=== PATIENT | female | born 1965 | race Caucasian/White ===

== ENCOUNTER 2024-03-12 13:33 | Outpatient (AMB) | payer OTHER, MEDICARE, SELFPAY ==
[2024-03-12 14:22] VITALS: BP 120/68; PULSE 72; O2SAT 96; BMI 26.2
--- NOTE | 2024-03-12 14:22 | A.OFFVIS_ITS ---
Vital Signs 03/12/24 14:22 Height 5 ft 1 in Weight 138 lb 14.259 oz BMI 26.2 BP 120/68 Blood Pressure Location Lt brachial Position Sitting Pulse 72 Pulse Source Pulse Oximeter Pulse Oximetry (%) 96 Oxygen Delivery Method Room Air Intake Visit Reasons: RA//RECORDS RECEIVED Intake Note: Patient presents today for follow up on rheumatoid arthritis and arthralgia on hands and feet. She was last seen on 11/08/[address] Mendoza. Allergies baclofen Allergy (Mild, Verified 03/12/24 14:30) Hives cefpodoxime Allergy (Mild, Verified 03/12/24 14:30) Hives cipro IV Allergy (Mild, Uncoded 03/12/24 14:30) Hives Medication List - Last Reconciled 03/12/24 by Willy Mendoza MD [cannabis gummies] carvedilol 12.5 mg PO BID cetirizine (All Day Allergy (cetirizine)) 10 mg PO DAILY PRN cholecalciferol (vitamin D3) 500 mcg PO QWEEK diazepam 10 mg PO BEDTIME PRN etanercept (Enbrel SureClick) 50 mg subcut QWEEK famotidine 20 mg PO DAILY ketorolac 0.4% 1 drp ophthalmic (eye) QID lidocaine 5% 1 patch topical DAILY rizatriptan 10 mg PO Q2-4H PRN tramadol 50 mg PO BID PRN HPI HPI RA//RECORDS RECEIVED: Details: She had flare of joint pain in shoulders, back. She recieved methylprednisone from Dr. Husain (methylprednisolone 16mg x3 tapered down). She had a reaction with hypertension, insomnia, POTs exacerbation with diaphoresis. No change in pain with methylprednisolone course. She continues to have hip and knee pain. She fell January. Improving. Patient has remained off of methotrexate since uterine biopsy due to thickening of the uterus in setting of postmenopausal bleeding in September 2023. She had a repeat uterine biopsy with results pending. Patient reports that methotrexate was held due to transaminitis. Review of Systems Const All systems reviewed & are unremarkable except as noted in HPI and below Physical Exam Vital Signs: Last Vital Signs Pulse 72 03/12/24 14:22 BP 120/68 03/12/24 14:22 Pulse Ox 96 03/12/24 14:22 Oxygen Delivery Method Room Air 03/12/24 14:22 BMI result Body Mass Index 26.2 Const Other: General: Comfortable CVS: RRR Respiratory: clear to auscultation bilaterally. Good respiratory effort Skin: No lesions seen MSK: Tender to palpate multiple small joints in hands. No synovitis. Good range of motion of upper extremities and lower extremities. Tender to palpate bilateral MTPs. Assessment & Plan Assessment & Plan (1) Rheumatoid arthritis: Comment: History of seronegative RA. Methotrexate 09/2021-10/2023 held due to uterine biopsy. Enbrel 01/11/2023 to present. Prednisone and methylprednisolone exacerbates POTS. 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 Patient reports that she has had transaminitis on methotrexate but I could not find documentation from reviewing [facility]. Last set of labs from 11/08/2023 revealed normal AST and ALT. Code(s): M06.9 - Rheumatoid arthritis, unspecified Category: Medical Plan: Continue Enbrel weekly Labs for drug monitoring from last month is requested. I will also request nursing staff to find out if patient had transaminitis this year by calling [facility] treatment center. If patient has not had transaminitis, can reintroduce methotrexate to better control foot pain. Labs for drug monitoring ordered in 2 months Return to clinic 3 months (2) Other terminal block assembler (current) drug therapy: Code(s): Z79.899 - Other terminal block assembler (current) drug therapy Category: Medical Plan: See above Orders: Orders Alanine Aminotransferase 2 Months M06.9 - Rheumatoid arthritis, unspecified, Z79.899 - Other detention (current) drug therapy Aspartate Amino Transferase 2 Months M06.9 - Rheumatoid arthritis, unspecified, Z79.899 - Other detention (current) drug therapy Creatinine 2 Months M06.9 - Rheumatoid arthritis, unspecified, Z79.899 - Other terminal block assembler (current) drug therapy Hepatitis B,C Profile 2 Months M06.9 - Rheumatoid arthritis, unspecified, Z79.899 - Other detention (current) drug therapy T Spot TB 2 Months M06.9 - Rheumatoid arthritis, unspecified, Z79.899 - Other terminal block assembler (current) drug therapy Complete Blood Count Auto Diff 2 Months M06.9 - Rheumatoid arthritis, u nspecified, Z79.899 - Other detention (current) drug therapy Erythrocyte Sedimentation Rate 2 Months M06.9 - Rheumatoid arthritis, unspecified, Z79.899 - Other detention (current) drug therapy C Reactive Protein 2 Months M06.9 - Rheumatoid arthritis, unspecified, Z79.899 - Other detention (current) drug therapy Coding Level of Care Code Est Pt Level 4 (38453) Complex EM visit Add On G2211 Diagnoses Rheumatoid arthritis M06.9 Other detention (current) drug therapy Z79.899
== END 2024-03-12 15:09 | disposition home or self-care (01) ==
PROVIDERS: Visit Provider Internal Medicine Rheumatology
DX: M06.9 Rheumatoid arthritis, unspecified (principal); Z79.899 Other long term (current) drug therapy
CPT/HCPCS: 99214

== ENCOUNTER 2024-04-23 15:07 | Outpatient (REF) | payer OTHER, MEDICARE, SELFPAY | END 2024-04-23 15:08 | disposition home or self-care (01) | LOC: HO.LAB 15:07 | PROVIDERS: Visit Provider Internal Medicine Rheumatology | DX: Z13.89 Encounter for screening for other disorder (principal) ==

== ENCOUNTER 2024-05-20 15:59 | Outpatient (REF) | payer OTHER, MEDICARE, SELFPAY ==
[2024-05-20 16:29] LABS: MANUAL DIFF FLAG NO
[2024-05-20 17:08] LABS: Basophils Absolute Auto 0.1 X10*3/uL (0.0-0.2); Eosinophils Absolute Auto 0.2 X10*3/uL (0.0-0.4); Eosinophils Percent Auto 2.8 % (0-4); Hematocrit 41.6 % (37.0-47.0); Hemoglobin 13.9 g/dl (12.0-16.0); Imm Gran Abs Auto 0.03 X10*3/uL (0.00-0.03); Imm Gran Pct Auto 0.4 % (0.0-0.4); Lymphocytes Absolute Auto 3.1 X10*3/uL (1.2-4.9); Mean Corpuscular HGB Conc 33.4 g/dl (31.0-35.0); Mean Corpuscular Hemoglobin 30.8 pg (27.0-33.0); Mean Platelet Volume 9.7 fL (9.4-12.3); Monocytes Absolute Auto 0.6 X10*3/uL (0.1-1.2); Monocytes Percent Auto 6.6 % (2-11); Neutrophils Absolute Auto 4.4 x10*3/uL (2.0-8.3); Neutrophils Percent Auto 52.2 % (45-73); Platelet Count 338 X10*3/uL (160-400); Red Blood Count 4.52 X10*6/uL (4.20-5.50); Red Cell Distribution Width 12.3 % (11.0-16.0); White Blood Count 8.3 X10*3/uL (4.8-10.8)
[2024-05-20 17:30] LABS: Alanine Aminotransferase 19 U/L (0-31); Aspartate Amino Transferase 31 U/L (5-31); C Reactive Protein 0.49 mg/dL (< or = 0.50); Estimated Glomerular Filt Rate > 60
[2024-05-20 18:00] LABS: Erythrocyte Sedimentation Rate 12 MM/HR (0-20)
--- OUTSIDE RECORDS SUMMARY | 2024-05-20 19:41 | XMS_ITS | Clinical Summary ---
Author Organization [facility] Address [address] [place] [address] Care Team Providers Care Logistician Name Role Phone Unavailable Primary Care Provider Unavailabl e Social History Tobacco Use Types Packs/Day Years Used Date Smoking Tobacco: Never Assessed Sex and Gender Information Value Date Recorded Sex Assigned at Not on file Gender Identity Not on file Sexual Orientation Not on file Plan of Treatment Health Maintenance Due Date Last Done Comments Hepatitis C Virus Screening 1966 HIV Screening 1979 DTaP/Tdap/Td Vaccines (1 - Tdap) 1985 Hepatitis B Vaccines (1 of 3 - 19+ 3-dose series) 1985 Pneumococcal Vaccines 50+ (1 of 1 - PCV) 2016 Zoster (Shingles) Vaccine (1 of 2) 2016 COVID-19 Vaccine ( - 2023-2 5 season) 2023 Pneumococcal Vaccine: Pediat kanwal (0-5 Years) and At-Risk Patients (6 to 49 Years) Aged Out No longer eligible b ased on patient's age to complete this topic
--- OUTSIDE RECORDS SUMMARY | 2024-05-20 19:41 | XMS_ITS | Encounter Summary ---
Author Organization [facility] and [facility] Address [address] [place] [phone] Care Team Providers Care Dean Name Role Phone Nery Herman MD Primary Care Provider [phone] Encounter Details Date Type Department Care Team (Late st Contact Info) Description 04/30/2021 Scanned Document [facility] [address] [facility] [address] [facility] [place], [place] [id number] Provider, historical . Social History Tobacco Use Types Packs/Day Years Used Date Smoking Tobacco: Never Smokeless Tobacco: Never Alcohol Use Standard Drinks/Week Comments Not Currently 0 (1 standard drink = 0.6 oz pur e alcohol) Comments Unknown Sex and Gender Information Value Date Recorded Sex Assigned at Female 02/27/2021 11:08 AM EDT Legal Sex Female 8:16 AM EDT Gender Identity Female 01/28/2019 8:18 AM EDT Sexual Orientation Not on file documented as of this encounter Plan of Treatment Not on file documented as of this encounter Procedures Procedure Name Priority Date/Time Associated Diagnosis Comments [facility] MRI BRAIN Routine 04/25/2021 documented in this encounter Results * [facility] MRI Brain (04/25/2021) Anatomical Region Laterality Modality Head, Ortho Head Magnetic Resona nce us Historical Provider IMG [facility] NON REP ORDERABLES F inal Result documented in this encounter Visit Diagnoses Not on filedocumented in this encounter Care Teams Dean Relationship Specialty Start Date End Date Nery Herman MD [address] [place] [phone] PCP - General Internal Medicine 12/10/18 documented as of this encounter
--- OUTSIDE RECORDS SUMMARY | 2024-05-20 19:42 | XMS_ITS | Clinical Summary ---
Author Organization [facility] Address [address] [place] [address] Care Team Providers Care Shoe Shiner Name Role Phone Unavailable Primary Care Provider Unavailabl e Allergies Active Allergy Reactions Criticality Noted Date Comments Oxycodone-Acetaminophen Itching 10/01/2015 Medications Medication Sig Dispensed Refills Start Date End Date Status morphine (MSIR) 30 MG tablet 0 09/10/2015 Active ESTRACE VAGINAL 0.1 MG/GM vaginal cream 0 09/08/2015 Active diazepam (VALIUM) tablet 5 mg 0 09/04/2015 Active ondansetron (ZOFRAN-ODT) 4 MG disintegrating tablet 0 08/30/2015 Active zonisamide (ZONEGRAN) 100 MG capsule 0 06/30/2015 Active zonisamide (ZONEGRAN) 50 MG capsule 0 06/29/2015 Active topiramate (TOPAMAX) 100 MG tablet Take 100 mg by mouth daily. 0 Active Cholecalciferol (VITAMIN D3) 2000 UNITS CHEW Chew by mouth. 0 A ctive Active Problems No known active problems Family History Relation Name Status Comments Father Mother Social History Tobacco Use Types Packs/Day Years Used Date Smoking Tobacco: Never Alcohol Use Standard Drinks/Week Comments Yes 0 (1 standard drink = 0.6 oz pur e alcohol) occasionally Sex and Gender Information Value Date Recorded Sex Assigned at Not on file Gender Identity Not on file Sexual Orientation Not on file Last Filed Vital Signs Vital Sign Reading Time Taken Comments Blood Pressure 124/82 10/01/2015 11:00 AM EDT Pulse 86 10/01/2015 11:00 AM EDT Temperature 37.1 ??C (98.7 ??F) 10/01/2015 11:00 AM E DT Respiratory Rate - - Oxygen Saturation 100% 10/01/2015 11:00 AM EDT Inhaled Oxygen Concentration - - Weight 72.6 kg (160 lb) 10/01/2015 11:00 AM EDT Height 152.4 cm (5') 10/01/2015 11:00 AM EDT Body Mass Index 31.25 10/01/2015 11:00 AM EDT Plan of Treatment Health Maintenance Due Date Last Done Comments Hepatitis B Vaccines (1 of 3 - 3-dose series) 1966 Hepatitis C Screening 1966 COVID-19 Vaccine (#1) 1966 Depression Screening 1978 Preventative Health Evaluation 1984 DTap / Tdap / Td (1 - Tdap) 1985 Cervical Cancer Screening (P ap Smear) 1987 Colon Cancer Screening (Colonoscopy) 2011 Breast Cancer Screening (Mammogram) 2016 Shingrix-Zoster Vaccine (1 of 2) 2016 Influenza Vaccine (#1) 2023 Pneumococcal Vaccine Aged Out No long er eligible based on patient's age to complete this topic RSV Ped < 20 months Aged Out No longe r eligible based on patient's age to complete this topic
--- OUTSIDE RECORDS SUMMARY | 2024-05-20 19:42 | XMS_ITS | Encounter Summary ---
Author Organization [facility] [employer] and [facility] Address [address] [place] [address] Care Team Providers Care Residential Energy Auditor Name Role Phone Nery Herman MD Primary Care Provider [phone] Encounter Details Date Type Department Care Team ([facility] st Contact Info) Description 11/16/2018 Abstract [facility] [address] [facility] [address] [facility] [place] [address] José Luis Azar MD [address] [place] [phone] Social History Tobacco Use Types Packs/Day Years Used Date Smoking Tobacco: Never Assessed Comments Unknown Sex and Gender Information Value Date Recorded Sex Assigned at Female 02/27/2021 11:08 AM EDT Legal Sex Female 8:16 AM EDT Gender Identity Female 01/28/2019 8:18 AM EDT Sexual Orientation Not on file documented as of this encounter Plan of Treatment Not on file documented as of this encounter Visit Diagnoses Not on filedocumented in this encounter Care Teams Residential Energy Auditor Relationship Specialty Start Date End Date Nery Herman MD [address] [place] [phone] PCP - General Internal Medicine 12/10/18 documented as of this encounter
--- OUTSIDE RECORDS SUMMARY | 2024-05-20 19:42 | XMS_ITS | Encounter Summary ---
Author Organization [facility] [employer] [facility] and [facility] Address [address] [place] [phone] Care Team Providers Care Wire Wrapping Machine Operator Name Role Phone Nery Herman MD Primary Care Provider [phone] Encounter Details Date Type Department Care Team ([facility] st Contact Info) Description 02/18/2019 Scanned Document [facility] at [address] [facility] [address] [facility] [place] [address] José Luis Azar MD [address] [place] [phone] Social History Tobacco Use Types Packs/Day Years [...] on filedocumented in this encounter Care Teams Wire Wrapping Machine Operator Relationship Specialty Start Date End Date Nery Herman MD [address] [place] [phone] PCP - General Internal Medicine 12/10/18 documented as of this encounter
--- OUTSIDE RECORDS SUMMARY | 2024-05-20 19:42 | XMS_ITS | Clinical Summary ---
Author Organization [address] Address [address] [place] [phone] Phone Care Team Providers Care Dive Master Name Role Phone Nery Herman MD Primary Care Provider [phone] Allergies Active Allergy Reactions Criticality Noted Date Comments Ciprofloxacin Swelling Medium 12/10/2018 Oxycodone-Acetaminophen Itching Low 08/31/2011 Medications rizatriptan (MAXALT) 10 MG tablet TAKE 1 TABLET AT ONSET OF HEADACHE. MAY REPEAT EVERY 2 HOURS NEEDED. MAXIMUM 3 TABLETS IN 24 HRS. 3 07/06/2018 Active cholecalciferol , vitamin D3, 2,000 unit Chew Take 1 tablet by mouth daily. Active diazePAM (VALIUM) 5 MG tablet Take 15 mg by mouth nightly as needed. 11/06/2018 Active morphine (MSIR) 15 mg tablet TAKE 1 TO 2 TABLETS BY MOUTH EVERY 4 HOURS NEEDED FOR SEVERE PAIN. MAX OF 3 TABLETS A DAY. NOT INTENDED FOR ROUTINE/DAILY USE 02/15/2021 Active lidocaine (LIDODERM) 5 % PLACE 1 PATCH ONTO THE SKIN ONCE DAILY. REMOVE AFTER 12 HOURS 01/18/2021 Active carvediloL (COREG) 25 mg Immediate Release tablet TAKE ONE TABLET BY MOUTH TWICE A DAY WITH A MEAL 02/13/2021 Active ergocalciferol (ERGOCALCIFEROL ) 1,250 mcg (50,000 unit) capsule Vitamin D2 1,250 mcg (50,000 unit) capsule Active pregabalin (LYRICA) 25 mg capsule One po qD, increase by one per week until taking three po BID 180 capsule 5 03/01/2021 Active Active Problems Problem Noted Date Diagnosed Date Fibromyalgia 12/10/2018 Social History Tobacco Use Types Packs/Day Years [...] AM EDT Sexual Orientation Not on file Last Filed Vital Signs Vital Sign Reading Time Taken Comments Blood Pressure 123/73 03/01/2021 3:15 PM EST Pulse 73 03/01/2021 3:15 PM EST Temperature 36.7 ??C (98 ??F) 03/01/2021 3:15 PM EST Respiratory Rate - - Oxygen Saturation - - Inhaled Oxygen Concentration - - Weight 71.7 kg (158 lb) 03/01/2021 3:15 PM EST Height 152.4 cm (5') 03/01/2021 3:15 PM EST Body Mass Index 30.86 03/01/2021 3:15 PM EST Plan of Treatment Health Maintenance Due Date Last Done Comments HIV screening 1979 Hepatitis C screening 1984 Tetanus adult (Td q 10,TDAP once) 1986 Cervical cancer screening 1987 Breast cancer screening 2006 Lipid disorder screening 2006 Colon cancer screening, Colonoscopy 2011 Shingles vaccine (Shingrix) (1 of 2 - Shingrix (RZV) 2 Dose Standard Series) 2016 Diabetes screening 12/10/2021 12/10/2018 Influenza vaccine 11/23/2023 02/18/2022, , 02/13/2019, Additional history exists Covid-19 vaccine series (2023- season) 2023 09/16/2020, 08/19/2020 RSV Discussion (1 - 1-dose 75+ series) 2041 Meningococcal Vaccine Aged Out No jose luis antoni eligible based on patient's age to complete this topic Pneumococcal Vaccine Aged Out No long er eligible based on patient's age to complete this topic Procedures Procedure Name Priority Date/Time Associated Diagnosis Comments HEMOGLOBIN A1C Routine 12/10/2018 3:25 PM EDT Erythromelalgia (HC Code) from Last 3 Months or Most Recently Relevant to Health Maintenance Results * (ABNORMAL) Hemoglobin A1c (12/10/2018 3:25 PM EDT) Hemoglobin A1c 5.8(H) 4.0 - 5.6 % 12/10/2018 10:14 PM EDT [facility] Comment: Hemoglobin A1c values of 5.7-6.4 % identify individuals with an increased risk for future diabetes and to whom the term pre-diabetes may be applied. ??Hemoglobin A1c values greater than 6.4% on more than one occasion are diagnostic of diabetes. Lowering HbA1c to below 7% is considered to reduce microvascular and neuropathic complications of diabetes. This boronate affinity Hb A1c method provides accurate analytical results in the presence of nearly all Hb variants. Hb F higher than 10% of total Hb may yield falsely low results. Conditions that shorten red cell survival, such as the presence of unstable hemoglobins like Hb SS, Hb CC, and Hb SC, or other causes of hemolytic anemia may yield falsely low results. Iron deficiency anemia may yield falsely high results. Estimated Average Glucose mg/dL 120 mg/dL 12/10/2018 10:14 PM EDT [facility] Comment: Estimated average glucose (eAG) is a calculated value designed to estimate ??the expected average blood glucose level throughout the day from a single ??measurement of ??glycated hemoglobin A1C (HbA1c) and follows the calculation proposed by the [place] [employer] (Diabetes Care 31: 1-6, 2008). It may have less accuracy in children, women and patients with certain erythrocyte disorders. Blood Venipuncture / Unknown 12/10/2018 3:25 PM EDT 12/10/2018 3:51 PM EDT us José Luis Azar MD LAB BLOOD ORDERABLES Final R esult [facility] [address] [place], [place] [address] [phone] from Last 3 Months or Most Recently Relevant to Health Maintenance [place] [address] [place] [address] [place] [address] [address] HEALTHCARE MEDICARE [facility] MEDICARE Care Teams Dive Master Relationship Specialty Start Date End Date Nery Herman MD [address] [place] [phone] PCP - General Internal Medicine 12/10/18
--- OUTSIDE RECORDS SUMMARY | 2024-05-20 19:42 | XMS_ITS | Continuity of Care Document ---
Author Organization [facility] Address [address] [place] [address]- Care Team Providers Care Host And Hostess Name Role Phone Rochelle Paniagua Primary Care Physician [id number] Date[facility]s): [facility]26[facility] - [facility] [address] [place] [id number] Encounter Type: Triage Allergies, Adverse Reactions, Alerts Substance Criticality Severity Reaction Reaction Severity Status cefpodoxime Burning of skin Ac tive Cipro I.V. Hives Localized swelling Active baclofen Active cephalosporins burning of skin Active Immunizations Given and Recorded Vaccine Date Status Refusal Reason influenza virus vaccine, inactivated 02/01/24 Give n influenza virus vaccine, inactivated 06/15/23 Give n influenza virus vaccine, inactivated 02/18/22 Give n influenza virus vaccine, inactivated 1 02/05/20 Gi pernell influenza virus vaccine, inactivated 02/16/18 Bandar rded influenza virus vaccine, inactivated 01/24/10 Bandar rded SARS-CoV-2 (COVID-19) mRNA-1273 vaccine 09/16/20 R ecorded SARS-CoV-2 (COVID-19) mRNA-1273 vaccine 08/19/20 R ecorded Influenza Virus Vaccine (oldterm) 02/13/19 Jeanmarie ledbetter 1Result Comment: [id number] Problem List Condition Confirmation Course Effective Dates Status H ealth Status Informant Anticonvulsant causing adverse effect in therapeutic use: Lamotrigine 1 Confirmed Active Anticonvulsant causing adverse effect in therapeutic use: Oxcarbazepine 2 Confirmed Active Anticonvulsant causing adverse effect in therapeutic use: pregabalin 3 Confirmed Active Chondromalacia patellae 4, 5 Confirmed Active Headache, frontal, intermittent Confirmed Active Colostomy in place Confirmed Active Somnolence: excessive daytime sleepiness Confirmed Active Decreased range of motion of neck Confirmed Active Decreased range of motion of left shoulder Confirmed Active Decreased range of motion of right shoulder Confirmed Active Dry eyes 6 Confirmed Active Fatigue Confirmed Active Limitation of activities due to disability 7, 8, 9, 10, 11, 12, 13, 14, 15, 16, 17 Confirmed Active Anxiety, generalized Confirmed Active History of fracture of coccyx Confirmed Active Hand joint pain, PIP joints Confirmed Active Hip pain, right Confirmed Active Hip pain, left Confirmed Active History of COVID-19: + 10/29/21 & received monoclonal Ab Rx 10/30/21 Confirmed Active Hyperlipidemia Confirmed Active Irritable bowel syndrome(IBS): diarrhea predominant Confirmed Active Lack of drug effect: oral compounded ketamine 18 Confirmed Active Lack of drug effect: memantine 19 Confirmed Active Fibroid Confirmed Active Mechanical low back pain Confirmed Active Microscopic hematuria Confirmed Active Myofascial pain syndrome, diffuse Confirmed Active Neck pain Confirmed Active Osteoporosis Confirmed Active Knee pain, bilateral, chronic Confirmed Active Knee pain, right Confirmed Active Shoulder pain, right Confirmed Active Pes anserinus bursitis 20 Confirmed Active Status post breast lumpectomy, for benign mass Confirmed 1989 Active Postural orthostatic tachycardia syndrome 21 Confirmed Active Sacroiliac joint dysfunction of right side Confirmed Active Rheumatoid arthritis with positive rheumatoid factor 22.3 on 05/28/18 Confirmed Active Shoulder pain, left Confirmed Active Subserosal leiomyoma of uterus Confirmed Active History of elevated TSH 7.0 on 10/19/2016; 6.59 on 08/30/2018 Confirmed Active 1Trial of lamotrigine prescribed 02/26/2014. At 50 mg lamotrigine/day, experienced severe headache, nausea and stomach pain. Trial aborted 03/10/14. 2Trial of oxcarbazepine begun 01/27/20. Experienced GI pain, belching, bloating, headaches and nausea. Trial aborted 02/04/20. 3On 03/01/21 prescribed another trial of pregabalin by Dr. José Luis Azar. She began tx at 25 mg bid & then incr'd the dose to 2 caps bid. After a couple days at the 50 mg bid dose ->felt like I was in another world & stopped the pregabalin. She had had similar AEs w prev. trial.. 4B/L per pt 02/2019 5left x 2018 - Dr. Pederson 7Updated Oswestry Disability Index: 38% ( moderate disability ); updated [place] Back Pain Scale: 56;both on 05/09/23 8Updated Oswestry Disability Index: 44% ( severe disability ); updated [place] Back Pain Disability Scale score: 36; both on 02/28/22. 9Updated Oswestry Disability Index: 38% ( moderate disability ); updated [place] Pain Disability Scale score: 32; both on 10/21/21. 10Updated Oswestry Disability Index: 60% severe disability and [place] Back Pain Disability Scale: 59 on 09/22/2020. 11updated Oswestry Disability Index: 70% ( crippled ) on 01/02/19; updated [place] Back Pain Scale: 94 on 01/02/19 12Updated Oswestry Disability Index: 66% ( crippled ) on 11/09/17; updated [place] Back Pain Disability Scale score: 79 on 11/09/17 13Updated Oswestry Disability Index: 40% moderate disability and [place] Back Pain Disability Scale:54 on 08/22/16. 14Updated Oswestry Disability Index: 56% ( severe disability ) on 07/22/15; updated [place] Back Pain Disability Scale score: 68 on 07/22/15. 15Updated Oswestry Disability Index: 78% ( crippled ) on 01/14/15; updated [place] Back Pain Disability Scale score: 87 on 9/23/15. 16Updated Oswestry Disability Index: 42% severe disability and [place] Back Pain Disability Scale: 66 on 09/19/2013. 17Initial [place] [Back] Pain Disability Scale: 63 on 03/10/2009; [place] Disability Scale: 65 on 03/14/11. [place] Disability Scale: 56% ( severe disability ) on 03/14/11. 18Oral compounded. ketamine prescribed 09/05/19. Dose escalated to 90 mg/dose without pain reduction. At 100 mg/dose experienced somnolence. Trial abandoned 09/17/19. 19Trial of memantine for pain begun 01/14/20. At 10 mg twice daily no pain reduction. In mid 2019, during period of GI sxs, discontinued memantine. 20left knee 21Treated at [facility] March 2017. Social History Social History Type Response Smoking Status Never smoker entered on: 04/01/13 Sex Sex Representation Female (finding) Patient Care team information Care Team Personnel Name: Triny Tavera NP [facility] Associate Professional Member Role: Primary Care Nurse Address: [address] [facility] [place], [place] [address] Telecom: Name: Rochelle Paniagua Position: [facility] Associate Professional Member Role: PCP Address: [address] [place] [address]- [place] Telecom: Name: Triny Wiley RN Position: [facility] SN RN Member Role: Primary Care Nurse Name: Elisabeth Watson MD, Alverto Barnett Position: [facility] Anesthesiology MD Member Role: Lifetime Consulting Physician Address: [address] [place], [place] [address] Telecom: Name: Margie Laguna Position: [facility] Outreach Member Role: Lifetime Consulting Physician Name: Kerry Salazar NP Position: [facility] PCO Associate Professional Member Role: Lifetime Consulting Provider Address: [address] [facility] Women's Advice Clerk [place], [place] [address] Telecom: Care Team Related Persons Name: JOSÉ MIGUEL HERNANDEZ Insurance Providers Guarantor name: MALLORY HERNANDEZ [facility] Information #: 1 Payer: [id number] Member Number: NA Policy Number: NA Group Number: NA Health Plan Information #: 2 Payer: MEDICARE PART B OUTPT Member Number: NA Policy Number: NA Group Number: NA
--- OUTSIDE RECORDS SUMMARY | 2024-05-20 19:42 | XMS_ITS | Encounter Summary ---
Author Organization [facility] Address [address] [place] [address] Care Team Providers Care Stunner And Shackler Name Role Phone Unavailable Primary Care Provider Unavailabl e Encounter Details Date Type Department Care Team (Late st Contact Info) Description 07/26/2023 Scanned Document [facility] UROLOGY SCAN Urology, Scan Social History Tobacco Use Types Packs/Day Years Used Date Smoking Tobacco: Never Assessed Sex and Gender Information Value Date Recorded Sex Assigned at Not on file Gender Identity Not on file Sexual Orientation Not on file documented as of this encounter Plan of Treatment Not on file documented as of this encounter Visit Diagnoses Not on filedocumented in this encounter
--- OUTSIDE RECORDS SUMMARY | 2024-05-20 19:42 | XMS_ITS | Encounter Summary ---
Author Organization [facility] Address [address] [place] [address] Care Team Providers Care Molding Fitter Name Role Phone Rochelle Lees Primary Care Provider Reason for Visit * Reason Onset Date Comments Carvedilol 25 mg 05/17/2024 Carvedilol 25 m g Encounter Details Date Type Department Care Team (Late st Contact Info) Description 05/17/2024 Telephone [facility] [address] [facility] [address] [place] [id number] Feliz Avalos MD [address] [facility] [address] [place] [address] Carvedilol 25 mg (Carvedilol 25 mg) Social History Tobacco Use Types Packs/Day Years Used Date Smoking Tobacco: Never Smokeless Tobacco: Never Alcohol Use Standard Drinks/Week Comments Not Currently 0 (1 standard drink = 0.6 oz pur e alcohol) Sex and Gender Information Value Date Recorded Sex Assigned at Not on file Gender Identity Not on file Sexual Orientation Not on file documented as of this encounter Ordered Prescriptions Prescription Sig Dispensed Refills Start Date End Da te carvediloL (COREG) 12.5 mg tablet Take 1 tablet (12.5 mg total) by mouth 2 (two) times a day with meals. 180 tablet 2 05/17/2024 documented in this encounter Progress Notes * Nara Simons [place] - 05/17/2024 10:18 AM EST Rx COREG renewed. Last office visit * Ad[place] - 05/17/2024 9:14 AM EST Paula qamar . She has been taking 25 mg Carvedilol 25 mg. She will need a new script sent to [facility] [place] documented in this encounter Plan of Treatment Not on file documented as of this encounter Visit Diagnoses Not on filedocumented in this encounter Discontinued Medications Medication Sig Discontinue Reason Start Date End Da te carvediloL (COREG) 12.5 mg tablet Take 1 tablet (12.5 mg total) by mouth. Reorder 02/15/2024 05/17/2024 documented as of this encounter Historical Medications * This list may reflect changes made after this encounter. Medication Sig Dispensed Refills Start Date End Date carvediloL (COREG) 12.5 mg tablet Take 1 tablet (12.5 mg total) by mouth. 02/15/2024 05/17/2024 added in this encounter Care Teams Molding Fitter Relationship Specialty Start Date End Date Rochelle Lees PA [address] [place] [phone] PCP - General 05/17/24 documented as of this encounter
--- OUTSIDE RECORDS SUMMARY | 2024-05-20 19:42 | XMS_ITS | Continuity of Care Document ---
Author Organization [facility] Address [address] [place] [address]- Care Team Providers Care Buyer Liaison Name Role Phone Rochelle Paniagua Primary Care Physician Encounter [facility] ACCT R [id number] Date(s): 04/11/24 - 05/11/24 [facility] [address] [place] [id number] Attending Physician: AdmMonica khalil Admitting Physician: Admtr, Monica Referring Physician: Admtr, Ar8 Encounter Type: Triage Allergies, Adverse Reactions, Alerts Substance Criticality Severity Reaction Reaction Severity Status cefpodoxime Burning of skin Ac tive baclofen Active cephalosporins burning of skin Active Cipro I.V. Hives Localized swelling Active Immunizations Given and Recorded Vaccine Date [...] Vaccine (oldterm) 02/13/19 Jeanmarie ledbetter 1Result Comment: [id number] Problem List Condition Confirmation Course Effective Dates [...] prev. trial.. 4B/L per pt 02/2019 5left 6Dx 2018 - Dr. Pederson 7Updated Oswestry Disability Index: 38% ( moderate disability ); updated [place] Back Pain Scale: 56;both on 05/09/23 8Updated [place]estry Disability Index: 44% ( severe disability ); updated [place] Pain Disability Scale score: 36; both on 02/28/22. 9Updated [place]estry Disability Index: 38% ( moderate disability ); updated [place] Pain Disability Scale score: 32; both on 10/21/21. 10Updated [place]estry Disability Index: 60% severe disability and [place] Pain Disability Scale: 59 on 09/22/2020. 11updated [place] Disability Index: 70% ( crippled ) on 01/02/19; updated [place] Back Pain Scale: 94 on 01/02/19 12Updated [place]estry Disability Index: 66% ( crippled ) on 11/09/17; updated [place] Pain Disability Scale score: 79 on 11/09/17 13Updated [place]estry Disability Index: 40% moderate disability and [place] Back Pain Disability Scale:54 on 08/22/16. 14Updated [place]estry Disability Index: 56% ( severe disability ) on 07/22/15; updated [place] Pain Disability Scale score: 68 on 07/22/15. 15Updated [place]estry Disability Index: 78% ( crippled ) on 01/14/15; updated [place] Pain Disability Scale score: 87 on 01/14/15. 16Updated [place] Disability Index: 42% severe disability and [place] Pain Disability Scale: 66 on 09/19/2013. 17Initial [place] [Back] Pain Disability Scale: 63 on 03/10/2009; [place] Disability Scale: 65 on 03/14/11. [place] Disability [...] sxs, discontinued memantine. 20left knee 21Treated at [facility] March 2017. Vital Signs Most recent to oldest [Reference Range]: 1 Height 154 cm (04/08/13 9:02 AM) Weight 74 kg (04/08/13 9:02 AM) Pulse Rate [55-90 bpm] 83 bpm (04/08/13 9:02 AM) Body Mass Index [18.50-24.99] 31.2 *>HHI* (04/08/13 9:02 AM) Blood Pressure [90-138/55-84 mm Hg] 120/ 76mm Hg (04/08/13 9:02 AM) Respiratory Rate [16-30 br/min] 18 br/mi n (04/08/13 9:02 AM) Blood pressure sites Arm, left (04/08/13 9:02 AM) Weight Obtained Via Patient/family state d (04/08/13 9:02 AM) Social History Social History Type Response Smoking Status Never smoker entered on: 04/01/13 Sex Sex Representation Female (finding) Cardiology * Event Display: Non BH Cardiovascular Results Authored Date: * Event Display: Non [facility] Cardiovascular Results Authored Date: Laboratory * Event Display: Non [facility] Lab Results Authored Date: * Event Display: Non [facility] Lab Results Authored Date: * Event Display: Non BH Lab Results Authored Date: CT Head * Event Display: CT Scan Head Authored Date: Radiology * Event Display: Non BH Radiology Results Authored Date: Patient Care team information Care Team Personnel Name: Triny Tavera NP Position: [facility] PCO Associate Professional Member Role: Primary Care Nurse Address: [address] [facility] [place], [place] - [place] Telecom: Name: Rochelle Paniagua Position: [facility] Associate Professional Member Role: PCP Address: [address] [facility] [address] [facility] [place] [address]- [place] Telecom: Name: Triny Wiley RN Position: [facility] SN RN Member Role: Primary Care Nurse Name: Elisabeth Watson MD, Alverto Barnett Position: [facility] Anesthesiology MD Member Role: Lifetime Consulting Physician Address: [address] [place] [address]- [place] Telecom: Name: Margie Laguna Position: [facility] Outreach Member Role: Lifetime Consulting Physician Name: Martin TORRES, Kerry Camacho Position: [facility] PCO Associate Professional Member Role: Lifetime Consulting Provider Address: [address] [facility] [place] [address]- [place] Telecom: Care Team Related Persons Name: JOSÉ MIGUEL HERNANDEZ Insurance Providers Guarantor name: MALLORY HERNANDEZ Health Plan Information #: 1 Payer: NA Member Number: NA Policy Number: NA Group Number: NA Health Plan Information #: 2 Payer: MEDICARE PART B OUTPT Member Number: NA Policy Number: NA Group Number: NA
--- OUTSIDE RECORDS SUMMARY | 2024-05-20 19:42 | XMS_ITS | Clinical Summary ---
Author Organization [facility] it Address [address] [place] [address] Care Team Providers Care Hardwood Sawyer Name Role Phone Rochelle Lees Primary Care Provider Medications Medication Sig Dispensed Refills Start Date End Date Status carvediloL (COREG) 12.5 mg tablet Take 1 tablet (12.5 mg total) by mouth 2 (two) times a day with meals. 180 tablet 2 05/17/2024 Active carvediloL (COREG) 12.5 mg tablet Take 1 tablet (12.5 mg total) by mouth. 02/15/2024 05/17/2024 Discontinued (Reorder) Encounters Date Type Department Care Team Description 05/17/2024 Telephone [facility] Cardiology [facility] [address] [facility] [address] [place] [address] Feliz Avalos MD Carvedilol 25 mg (Carvedilol 25 mg) 02/27/2024 Telephone [facility] Cardiology [address] [place] [phone] Feliz Avalos MD Back Pain (Back pain / sweats / ) from Last 3 Months Surgical History Surgery Date Site/Laterality Comments CHOLECYSTECTOMY 02/27/2015 PROCEDURE: [place] LAPAROSCOPY SURG CHOLECYSTECTOMY OTHER SURGICAL HISTORY 10/17/2014 PROCEDURE: HISTORY OTHER; COMMENT: Implantation of Electronic Stimulator into Urinary Bladder OTHER SURGICAL HISTORY 09/07/2011 PROCEDURE: HISTORICAL COLOSTOMY; COMMENT: End left colostomy and closure of dital segment (Thiago type procedure) BREAST LUMPECTOMY PROCEDURE: HISTORICAL BREAST LUMPECTOMY BREAST REDUCTION PROCEDURE: [place] BREAST REDUCTION Medical History Medical History Date Comments Anticonvulsant causing adver se effect in therapeutic use DX:Anticonvulsant causing ad verse effect in therapeutic use; COMMENT: Lamotrigine Anticonvulsant causing adver se effect in therapeutic use DX:Anticonvulsant causing ad verse effect in therapeutic use; COMMENT: Oxcarbazepine Anxiety, generalized DX:Anxiety, generalized Left arm pain DX:Left arm pain Overweight (BMI 25.0-29.9) DX:Ov erweight (BMI 25.0-29.9) Chondromalacia patellae DX:Chond romalacia patellae Cold sensation of skin DX:Cold s ensation of skin Reactive depression (situational) DX:Reactive depression (situational) Dermatitis, seborrheic DX:Dermat itis, seborrheic Dry eyes DX:Dry eyes Dyspnea DX:Dyspnea Dysthymia DX:Dysthymia Erythromelalgia (CMS/HCC) DX:Jarrett thromelalgia ([facility]) Fatigue DX:Fatigue Fibroid DX:Fibroid Greater trochanteric bursitis DX :Greater trochanteric bursitis Hand and foot pain DX:Hand and f oot pain Pain in joint of left hand DX:Pa in in joint of left hand; COMMENT: PIP joint fourth digit Headache, chronic daily DX:Heada amber, chronic daily History of gestational diabetes DX:History of gestational diabetes Fractured coccyx (CMS/HCC) DX:Fr actured coccyx ([facility]); COMMENT: H/O History of varicella DX:History of varicella; COMMENT: as a child Hypothyroidism DX:Hypothyroidis m Iliotibial band syndrome of both sides DX:Iliotibial band syndrome of both sides IBS (irritable bowel syndrome) D X:IBS (irritable bowel syndrome) Bilateral knee pain DX:Bilateral knee pain Lack of adequate sleep DX:Lack o f adequate sleep Lack of drug effect DX:Lack of d rug effect; COMMENT: Memantine Lack of drug effect DX:Lack of d rug effect; COMMENT: Oral compunded ketamine Limitation of activities due to disability DX:Limitation of activities due to disability Elevated liver enzymes DX:Elevat ed liver enzymes Mechanical low back pain DX:Mech anical low back pain Microscopic hematuria DX:Microsc opic hematuria Migraine without aura DX:Migrain e without aura; COMMENT: Bifrontal, with nausea, photo and phonophobia Muscle spasms of lower extremity DX:Muscle spasms of lower extremity Myofascial pain syndrome DX:Myof ascial pain syndrome; COMMENT: diffuse/regional Parastomal hernia without ob struction or gangrene DX:Parastomal hernia without obstruction or gangrene Pes anserinus bursitis DX:Pes an serinus bursitis Postural orthostatic tachycardia syndrome DX:Postural orthostatic tachycardia syndrome Pre-syncope DX:Pre-syncope; COMMENT: intermittent Prediabetes DX:Prediabetes Radicular pain of lumbosacral region DX:Radicular pain of lumbosacral region Sacroiliac joint dysfunction of right side DX:Sacroiliac joint dysfunct ion of right side Shoulder pain, bilateral DX:Shou lder pain, bilateral Somnolence DX:Somnolence; C OMMENT: Excessive daytime sleepiness S/P breast lumpectomy DX:S/P haylie ast lumpectomy; COMMENT: For benign mass Swelling of extremity DX:Swellin g of extremity Vaginal tear resulting from childbirth DX:Vaginal tear resulting from childbirth Vitamin D deficiency DX:Vitamin D deficiency Abdominal pain, right upper quadrant DX:Abdominal pain, right upper quadrant Alkaline phosphatase raised DX:A lkaline phosphatase raised Anemia, normocytic normochromic DX:Anemia, normocytic normochromic Right buttock pain DX:Right butt ock pain Constipation due to opioid therapy DX:Constipation due to opioid therapy Early satiety DX:Early satiety History of motion sickness DX:Hi story of motion sickness Incontinence of feces DX:Inconti nence of feces Bilateral leg pain DX:Bilateral leg pain Lumbar herniated disc DX:Lumbar herniated disc Orthostatic dizziness DX:Orthost atic dizziness Orthostatic hypotension DX:Ortho static hypotension Periorbital edema DX:Periorbital edema S/P colostomy (CMS/HCC) DX:S/P c olostomy (HCC) Pruritus DX:Pruritus S/P reduction mammoplasty DX:S/P reduction mammoplasty S/P umbilical hernia repair, follow-up exam DX:S/P umbilical hernia repa ir, follow-up exam Thoracic back pain DX:Thoracic b ack pain Urinary hesitancy DX:Urinary hes itancy Family History Medical History Relation Name Comments Bladder Cancer Father Diabetes Father Mellitus, Type II Hypertension Father Other: Hyperlipidemia Father Other: Skin Cancer Father Other: Thyroid Disease Father Prostate cancer Father Coronary artery disease Mother Heart attack Mother Other: Hyperlipidemia Mother Hypertension Sister Relation Name Status Comments Father Mother Sister Social History Tobacco Use Types Packs/Day Years Used Date Smoking Tobacco: Never Smokeless Tobacco: Never Alcohol Use Standard Drinks/Week Comments Not Currently 0 (1 standard drink = 0.6 oz pur e alcohol) Sex and Gender Information Value Date Recorded Sex Assigned at Not on file Gender Identity Not on file Sexual Orientation Not on file Obstetrics History Last Filed Vital Signs Vital Sign Reading Time Taken Comments Blood Pressure 132/90 01/23/2024 1:06 PM EDT Pulse 59 01/23/2024 1:06 PM EDT Temperature - - Respiratory Rate - - Oxygen Saturation - - Inhaled Oxygen Concentration - - Weight 64 kg (141 lb) 01/23/2024 1:06 PM EDT Height 154.9 cm (5' 1 ) 01/23/2024 1:06 PM EDT Body Mass Index 26.64 01/23/2024 1:06 PM EDT Plan of Treatment Health Maintenance Due Date Last Done Comments Breast Cancer Screening 1966 DTaP,Tdap,and Td Vaccines (1 - Tdap) 1985 Hepatitis B Vaccines (1 of 3 - 19+ 3-dose series) 1985 Cervical Cancer Screening: P ap Smear 1987 Zoster Vaccines (1 of 2) 2016 Cholesterol Screening (Lipid Panel) 04/02/2022 Colorectal Cancer Screening: Colonoscopy 04/02/2022 Depression Screening 04/02/2022 HIV Screening 04/02/2022 Hepatitis C Screening 04/02/2022 Hypertension/CHF/CAD Annual BMP Blood Test 04/02/2022 Social Influencers of Health Screening 04/02/2022 COVID-19 Vaccine (2023-2 5 season) 2023 Influenza Vaccine (#1) 2023 HIB Vaccines Aged Out No longer eligi ble based on patient's age to complete this topic HPV Vaccines Aged Out No longer eligi ble based on patient's age to complete this topic Hepatitis A Vaccines Aged Out No long er eligible based on patient's age to complete this topic IPV Vaccines Aged Out No longer eligi ble based on patient's age to complete this topic MMR Vaccines Aged Out No longer eligi ble based on patient's age to complete this topic Meningococcal ACWY Vaccine Aged Out N o longer eligible based on patient's age to complete this topic Pneumococcal Vaccine: Pediat rics (0 to 5 Years) and At-Risk Patients (6 to 64 Years) Aged Out No longer eligible b ased on patient's age to complete this topic RSV Immunization Patients Un danay 20 months Aged Out No longer eligible b ased on patient's age to complete this topic Varicella Vaccines Aged Out No longer eligible based on patient's age to complete this topic Care Teams Hardwood Sawyer Relationship Specialty Start Date End Date Rochelle Lees PA [address] [place] [phone] PCP - General 05/17/24
[2024-05-21 08:19] LABS: HBS Num1 1.52 mIU/mL (0-7.99); HBc Num1 0.12 S/CO (0.00-0.79); HBsAGNum1 0.36 S/CO (0.00-0.99); Hepatitis B Core Antibody Nonreactive (Nonreactive); Hepatitis B Surface Antigen Negative (Negative); ~HepC Num1 0.08 S/CO (0.00-0.79); ~Hepatitis B Surface Antibody NONREACTIVE (Nonreactive); ~Hepatitis C Antibody Nonreactive (Nonreactive)
[2024-05-23 00:33] LABS: TS Negative Control Passed; TS Panel A 0; TS Panel B 0; TS Positive Control Passed; TSpotTB Negative (Negative)
== END 2024-05-20 16:00 | disposition home or self-care (01) ==
LOC: HO.LAB 15:59
PROVIDERS: Visit Provider Internal Medicine Rheumatology
DX: M06.9 Rheumatoid arthritis, unspecified (principal); Z79.899 Other long term (current) drug therapy
CPT/HCPCS: 36415; 82565; 84450; 84460; 85025; 85652; 86140; 86481; 86704; 86706; 86803; 87340

== ENCOUNTER 2024-06-11 13:42 | Outpatient (AMB) | payer OTHER, MEDICARE, SELFPAY ==
--- NOTE | 2024-06-11 13:58 | A.OFFVIS_ITS ---
Vital Signs 06/11/24 14:08 Height 5 ft 1 in Weight 148 lb 6 oz BMI 28.0 BP 140/90 H Blood Pressure Location Rt brachial Position Sitting Pulse 62 Pulse Source Pulse Oximeter Pulse Oximetry (%) 96 Intake Visit Reasons: Follow Up 3 mo Intake Note: Patient presents today for follow up on rheumatoid arthritis and arthralgia on hands and feet. Field Rep Required: No Accompanied by: Self / Same As Patient Allergies baclofen Allergy (Mild, Verified 06/11/24 14:08) Hives cefpodoxime Allergy (Mild, Verified 06/11/24 14:08) Hives cipro IV Allergy (Mild, Uncoded 03/12/24 14:30) Hives HPI HPI Follow Up 3 mo: Details: R shoulder pain started 2 weeks after last week. Takes ibuprofen 600mg BID. Wakes up at night with pain. Ankles are swollen. She has developed nodules on her forearms bilateral. Nodules are not painful. She has also developed swelling on her right shoulder and right medial elbow. Review of Systems Const All systems reviewed & are unremarkable except as noted in HPI and below Physical Exam Vital Signs: Last Vital Signs Pulse 62 06/11/24 14:08 BP 140/90 H 06/11/24 14:08 Pulse Ox 96 06/11/24 14:08 BMI result Body Mass Index 28.0 Const Other: General: Comfortable CVS: RRR Respiratory: clear to auscultation bilaterally. Good respiratory effort Skin: No lesions seen MSK: Tender right shoulder with soft tissue swelling superolateral to AC joint. She also has soft tissue swelling right medial antecubital fossa without tenderness to palpate. Nodules palpated along lateral forearm of both arms. Nontender nodules. Right shoulder pain with abduction extension and internal rotation and external rotation. Range of motion of bilateral shoulders are preserved. Tender bilateral ankles with mild synovitis present. Tender bilateral MTPs. Office Procedures AMB Joint Injection/Aspiration Coding 13592 - Large joint Procedure code (CPT) selection complete Office Meds lidocaine (PF) 10 mg/mL (1 %) injection solution Performing Provider: Willy Mendoza MD Performing Location: [facility] Rheumatology-[facility] Administered by: Willy Mendoza MD on 06/11/24 15:52 Dose Route Admin Location Dispensed Lot Number Expiration Date [facility] Electrical Superintendent 10 mg Infiltration 2 mL [id number] [facility] Kenalog 40 mg/mL suspension for injection Performing Provider: Willy Mendoza MD Performing Location: [facility] Rheumatology-[facility] Administered by: Willy Mendoza MD on 06/11/24 15:52 Dose Route Admin Location Dispensed Lot Number Expiration Date [place] Electrical Superintendent 40 mg intra-articular 1 mL AP [id number] [employer] Assessment & Plan Assessment & Plan (1) Rheumatoid arthritis: Comment: Polyarthritis and stiffness is uncontrolled on current regimen with development of possible rheumatoid nodules on bilateral forearms. She has history of right glenohumeral joint osteoarthritis but I am concerned that RA activity is contributing to her right shoulder nocturnal pain despite her doing PT exercises and using ibuprofen 600 mg twice a day without benefit. History of seronegative RA. Methotrexate 09/2021-10/2023 held due to uterine biopsy then restarted and discontinued 2023 due to transaminitis. Enbrel 01/11/2023 to present. Prednisone and methylprednisolone exacerbates POTS. Code(s): M06.9 - Rheumatoid arthritis, unspecified Category: Medical Qualifiers: Rheumatoid arthritis location: multiple sites Rheumatoid factor presence: without rheumatoid factor Qualified Code(s): M06.09 - Rheumatoid arthritis without rheumatoid factor, multiple sites Plan: Patient received right shoulder cortisone injection this visit Change ibuprofen to celecoxib 200 mg twice a day with food Labs for drug monitoring on high-risk medication are up-to-date from 04/2024 [facility]. She will require nurse teaching visit once Humira is approved and labs 4 weeks after teaching visit: CBC, creatinine, AST, ALT She will continue Enbrel weekly until Humira is approved. She will be scheduled for nurse teaching visit on the day that Enbrel is due or afterwards Avoiding systemic glucocorticoid steroids due to exacerbation of POTS Return to clinic in 3 months (2) Other intermediate designer (current) drug therapy: Code(s): Z79.899 - Other snf (current) drug therapy Category: Medical Plan: See above Orders: Orders AMB Joint Injection/Aspiration Today M06.9 - Rheumatoid arthritis, unspecified, Z79.899 - Other intermediate designer (current) drug therapy Medications: New lidocaine (PF) 10 mg Infiltration ONCE 1 mL 0RF M06.9 - Rheumatoid arthritis, unspecified, Z79.899 - Other snf (current) drug therapy Kenalog (triamcinolone acetonide) 40 mg intra-articular ONCE 1 mL 0RF NS M06.9 - Rheumatoid arthritis, unspecified, Z79.899 - Other intermediate designer (current) drug therapy adalimumab (Humira Pen) (0.8 mL) 40 mg subcutaneously; PA needed. Needs nurse teaching visit for first dose administration in office. 2 ea 2RF celecoxib Take with food 200 mg PO BID 60 caps 2RF Coding Level of Care Code Est Pt Level 4 (87508) Complex EM visit Add On G2211 Diagnoses Rheumatoid arthritis of multiple sites with negative rheumatoid factor M06.09 Rheumatoid arthritis location: multiple sites Rheumatoid factor presence: without rheumatoid factor Other intermediate designer (current) drug therapy Z79.899 CPT Codes Coding - 99319 Large joint: 63470 - Large joint ([id number])
[2024-06-11 14:08] VITALS: BP 140/90; PULSE 62; O2SAT 96; BMI 28.0
--- OUTSIDE RECORDS SUMMARY | 2024-06-11 14:41 | XMS_ITS | Encounter Summary ---
Author Organization [facility] Address [address] [place] [phone] Care Team Providers Care Aircraft Inspector Name Role Phone Nery Herman MD Primary Care Provider [phone] Encounter Details Date Type Department Care Team (Late st Contact Info) Description 04/30/2021 Scanned Document [facility] [address] [facility] [address] [facility] [place], [place] [id number] Provider, historical . Social History Tobacco Use [...] on filedocumented in this encounter Care Teams Aircraft Inspector Relationship Specialty Start Date End Date Nery Herman MD [address] [place] [phone] PCP - General Internal Medicine 12/10/18 documented as of this encounter
--- OUTSIDE RECORDS SUMMARY | 2024-06-11 14:41 | XMS_ITS | Encounter Summary ---
Author Organization [facility] Address [address] [place] [address] Care Team Providers Care Academy Education Director Name Role Phone Nery Herman MD Primary Care Provider [phone] Encounter Details Date Type Department Care Team ([facility] st Contact Info) Description 11/16/2018 Abstract [facility] at [address] [facility] [address] [facility] [place] [address] José Luis Azar MD [address] [place] [phone] Social History Tobacco Use Types Packs/Day Years [...] on filedocumented in this encounter Care Teams Academy Education Director Relationship Specialty Start Date End Date Nery Herman MD [address] [place] [phone] PCP - General Internal Medicine 12/10/18 documented as of this encounter
--- OUTSIDE RECORDS SUMMARY | 2024-06-11 14:41 | XMS_ITS | Clinical Summary ---
Author Organization [facility] Address [address] [place] [address] Care Team Providers Care Acetylene Gas Compressor Name Role Phone Unavailable Primary Care Provider [...]
--- OUTSIDE RECORDS SUMMARY | 2024-06-11 14:41 | XMS_ITS | Clinical Summary ---
Author Organization [facility] Address [address] [place] [address] Care Team Providers Care Sole Leather Cutting Machine Operator Name Role Phone Unavailable Primary Care Provider [...]
--- OUTSIDE RECORDS SUMMARY | 2024-06-11 14:41 | XMS_ITS | Clinical Summary ---
Author Organization [facility] Address [address] [place] [address] Care Team Providers Care Freight Hustler Name Role Phone Rochelle Lees Primary Care Provider Medications carvediloL (COREG) 25 mg tablet Take 1 tablet (25 mg total) by mouth 2 (two) times a day with meals. 180 tablet 2 5 Active carvediloL (COREG) 12.5 mg tablet Take 1 tablet (12.5 mg total) by mouth. 4 05/17/19 25 Discontinu ed(Reorder ) carvediloL (COREG) 12.5 mg tablet Take 1 tablet (12.5 mg total) by mouth 2 (two) times a day with meals. 180 tablet 2 5 05/31/19 25 Discontinu ed(Dose adjustment ) Encounters Date Type Department Care Team Description 05/31/2024 Telephone [facility] Cardiology [facility] [address] [facility] [address] [place] [address] Feliz Avalos MD Med Refill (Carvedilol ) 05/17/2024 Telephone [facility] Cardiology [facility] [address] [facility] [address] [place] [address] Feliz Avalos MD Carvedilol 25 mg (Carvedilol 25 mg) from Last 3 Months Surgical History Surgery Date Site/Laterality Comments CHOLECYSTECTOMY 02/27/2015 PROCEDURE: [place] LAPAROSCOPY SURG CHOLECYSTECTOMY OTHER SURGICAL HISTORY 10/17/2014 PROCEDURE: HISTORY OTHER; COMMENT: Implantation of Electronic Stimulator into Urinary Bladder OTHER SURGICAL HISTORY 09/07/2011 PROCEDURE: HISTORICAL COLOSTOMY; COMMENT: End left colostomy and closure of dital segment (Thiago type procedure) BREAST LUMPECTOMY PROCEDURE: HISTORICAL BREAST LUMPECTOMY BREAST REDUCTION PROCEDURE: [place] BREAST REDUCTION Medical History Medical History Date [...] DX:Dyspnea Dysthymia DX:Dysthymia Erythromelalgia (CMS/HCC) DX:Jarrett thromelalgia ([facility]) Fatigue DX:Fatigue Fibroid DX:Fibroid Greater trochanteric bursitis DX :Greater trochanteric bursitis Hand and foot pain DX:Hand and f oot pain Pain in joint of left hand DX:Pa in in joint of left hand; COMMENT: PIP joint fourth digit Headache, chronic daily DX:Heada amber, chronic daily History of gestational diabetes DX:History of gestational diabetes Fractured coccyx (CMS/HCC) DX:Fr actured coccyx ([facility]); COMMENT: H/O History of varicella DX:History of [...] Recorded Sex Assigned at Not on file Legal Sex Female 11:06 AM EST Gender Identity Not on file Sexual Orientation [...] Cervical Cancer Screening: P ap Smear 1987 Pneumococcal Vaccine: 50+ Ye ars (1 of 1 - PCV) 2016 Zoster Vaccines (1 of 2) 2016 Cholesterol Screening (Lipid Panel) 04/02/2022 Colorectal Cancer Screening: Colonoscopy 04/02/2022 Depression Screening 04/02/2022 HIV Screening 04/02/2022 Hepatitis C Screening 04/02/2022 Hypertension/CHF/CAD Annual BMP Blood Test 04/02/2022 Social Influencers of Health Screening 04/02/2022 COVID-19 Vaccine ( - 2023-2 5 season) 2023 Influenza Vaccine (#1) 2023 [...] patient's age to complete this topic Meningococcal B Vacine Aged Out No lo nger eligible based on patient's age to complete [...] age to complete this topic Care Teams Freight Hustler Relationship Specialty Start Date End Date Rochelle Lees PA [address] [place] [phone] PCP - General 05/17/24
--- OUTSIDE RECORDS SUMMARY | 2024-06-11 14:41 | XMS_ITS | Encounter Summary ---
Author Organization [facility] Address [address] [place] [address] Care Team Providers Care Pillow Filler Name Role Phone Rochelle Lees Primary Care Provider Reason for Visit * Reason Onset Date Comments Med Refill 05/31/2024 Carvedilol Encounter Details Date Type Department Care Team (Late st Contact Info) Description 05/31/2024 Telephone [facility] [address] [facility] [address] [place] [phone] Feliz Avalos MD [address] [place] [address] Med Refill (Carvedilol ) Social History Tobacco Use Types Packs/Day Years [...] of this encounter Ordered Prescriptions Prescription Sig Dispense Quantity Refills Last Filled Start Date End Date carvediloL (COREG) 25 mg tablet Take 1 tablet (25 mg total) by mouth 2 (two) times a day with meals. 180 tablet 2 05/31/2024 documented in this encounter Progress Notes * Nelsy Robert RN - 05/31/2024 1:25 PM EST Carvedilol 25 mg BID rx sent and pt informed * Allison Glass NP - 05/31/2024 1:22 PM EST Yes that is fine, thank you * Nelsy Robert RN - 05/31/2024 1:08 PM EST AMANUEL 01/23/24 I spoke to pt. She self increased her Carvedilol dosing to 25 mg BID about a month ago. Pt stated she is doing well on this dose. May I refill Carvedilol 25 mg BID? Also confirmed her preferred pharmacy is [facility] in [facility] * Yuliana Keys - 05/31/2024 11:15 AM EST Patient needs a refill for Carvedilol 25 mg, her prescription was increased from 12.[address] Avalos. Please send a 30 day supply to [facility] on [facility]. documented in this encounter Plan of Treatment Not on file documented as of this encounter Visit Diagnoses Not on filedocumented in this encounter Discontinued Medications Medication Sig Discontinue Reason Start Date End Da te carvediloL (COREG) 12.5 mg tablet Take 1 tablet (12.5 mg total) by mouth 2 (two) times a day with meals. Dose adjustment 05/17/2024 05/31/2024 documented as of this encounter Care Teams Pillow Filler Relationship Specialty Start Date End Date Rochelle Lees PA [address] [place] [phone] PCP - General 05/17/24 documented as of this encounter
--- OUTSIDE RECORDS SUMMARY | 2024-06-11 14:41 | XMS_ITS | Clinical Summary ---
Author Organization [address] Address [address] [place] [phone] Phone Care Team Providers Care Pickle Pumper Name Role Phone Nery Herman MD Primary Care Provider [phone] Allergies Active Allergy Reactions Criticality Noted Date [...] 02/13/2019, Additional history exists Covid-19 vaccine series ( - 2023- season) 2023 09/16/2020, 08/19/2020 RSV Discussion (1 - 1-dose 75+ series) 2041 Meningococcal Vaccine Aged Out No jose luis antoni eligible based on patient's age to complete this topic Pneumococcal Vaccine (2 - 49 years) Aged Out No longer eligible based on patient's age to complete this topic Procedures Procedure Name Priority Date/Time Associated Diagnosis Comments HEMOGLOBIN A1C Routine 12/10/2018 3:25 PM EDT Erythromelalgia (HC Code) from Last 3 Months or Most Recently Relevant to Health Maintenance Results * (ABNORMAL) Hemoglobin A1c (12/10/2018 3:25 PM EDT) Hemoglobin A1c 5.8(H) 4.0 - 5.6 % 12/10/2018 10:14 PM EDT [facility] Comment: Hemoglobin A1c values of [...] mg/dL 120 mg/dL 12/10/2018 10:14 PM EDT [facility] Comment: Estimated average glucose (eAG) is a calculated value designed to estimate ??the expected average blood glucose level throughout the day from a single ??measurement of ??glycated hemoglobin A1C (HbA1c) and follows the calculation proposed by the [place] Diabetes Association (Diabetes Care 31: 1-6, 2008). It may have less accuracy in children, women and patients with certain erythrocyte disorders. Blood Venipuncture / Unknown 12/10/2018 3:25 PM EDT 12/10/2018 3:51 PM EDT us José Luis Azar MD LAB BLOOD ORDERABLES Final R esult [facility] [address] [place] [address], [facility] [phone] from Last 3 Months or Most Recently Relevant to Health Maintenance Insurance [facility] MEDICARE [facility] MEDICARE [facility] MEDICARE Care Teams Pickle Pumper Relationship Specialty Start Date End Date Nery Herman MD [address] [place] [phone] PCP - General Internal Medicine 12/10/18
--- OUTSIDE RECORDS SUMMARY | 2024-06-11 14:41 | XMS_ITS | Encounter Summary ---
Author Organization [facility] Address [address] [place] [address] Care Team Providers Care Development Writer Name Role Phone Rochelle Lees Primary Care Provider Reason for Visit * Reason Onset Date Comments Carvedilol 25 mg 05/17/2024 Carvedilol 25 m g Encounter Details Date Type Department Care Team (Late st Contact Info) Description 05/17/2024 Telephone [facility] - [facility] [address] [facility] 154 [place] [phone] Feliz Avalos MD 300 [facility] 154 [place] [address] Carvedilol 25 mg (Carvedilol 25 mg) Social [...] Filled Start Date End Date carvediloL (COREG) 12.5 mg tablet Take 1 tablet (12.5 mg total) by mouth 2 (two) times a day with meals. 180 tablet 2 05/17/2024 05/31/2024 documented in this encounter Progress Notes * Nara Simons MA - 05/17/2024 10:18 AM EST Rx COREG renewed. Last office visit 10.2024 * Adilene Navas - 05/17/2024 9:14 AM EST Paula qamar [...] may reflect changes made after this encounter. carvediloL (COREG) 12.5 mg tablet Take 1 tablet (12.5 mg total) by mouth. 02/15/2024 05/17/2024 added in this encounter Care Teams Development Writer Relationship Specialty Start Date End Date Rochelle Lees PA [address] [place] [phone] PCP - General 05/17/24 documented as of this encounter
--- OUTSIDE RECORDS SUMMARY | 2024-06-11 14:41 | XMS_ITS | Encounter Summary ---
Author Organization [facility] Address [address] [place] [address] Care Team Providers Care Forestry Pilot Name Role Phone Unavailable Primary Care Provider Unavailabl e Encounter Details Date Type Department Care Team (Late st Contact Info) Description 07/26/2023 Scanned Document [facility]AN Urology, Scan Social History Tobacco [...]
--- OUTSIDE RECORDS SUMMARY | 2024-06-11 14:41 | XMS_ITS | Encounter Summary ---
Author Organization [facility] and [facility] Address [address] [place] [address] Care Team Providers Care Catering Convention Services Manager Name Role Phone Nery Herman MD Primary Care Provider [phone] Encounter Details Date Type Department Care Team ([facility] st Contact Info) Description 02/18/2019 Scanned Document [facility] [address] [facility] [address] [facility] [place] [address] José Luis Azar MD [address] [place] [phone] Social History Tobacco Use Types Packs/Day Years [...] on filedocumented in this encounter Care Teams Catering Convention Services Manager Relationship Specialty Start Date End Date Nery Herman MD [address] [place] [phone] PCP - General Internal Medicine 12/10/18 documented as of this encounter
== END 2024-06-11 15:07 | disposition home or self-care (01) ==
PROVIDERS: Visit Provider Internal Medicine Rheumatology
DX: M06.09 Rheumatoid arthritis without rheumatoid factor, multiple sites (principal); Z79.899 Other long term (current) drug therapy; M25.511 Pain in right shoulder
CPT/HCPCS: 20610; 99214

== ENCOUNTER → 2024-06-11 13:42 | Outpatient (BNVA) | payer OTHER, MEDICARE, SELFPAY | PROVIDERS: Visit Provider Internal Medicine Rheumatology | DX: M06.09 Rheumatoid arthritis without rheumatoid factor, multiple sites (principal); M19.011 Primary osteoarthritis, right shoulder; Z79.899 Other long term (current) drug therapy | CPT/HCPCS: 20610; J2003; J3300 ==

== ENCOUNTER 2024-08-19 11:03 | Outpatient (REF) | payer OTHER, MEDICARE, SELFPAY ==
--- OUTSIDE RECORDS SUMMARY | 2024-08-19 13:19 | XMS_ITS | Encounter Summary ---
Author Organization [facility] [facility] and [facility] Address [address] [place] [address] Care Team Providers Care Water Treatment Plant Supervisor Name Role Phone Nery Herman MD Primary Care Provider [phone] Encounter Details Date Type Department Care Team ([facility] st Contact Info) Description 11/16/2018 Abstract [facility] [address] [facility] [address] [facility] [place] [address] José Luis Azar MD [address] [place] [phone] Social History Tobacco Use Types Packs/Day Years [...] on filedocumented in this encounter Care Teams Water Treatment Plant Supervisor Relationship Specialty Start Date End Date Nery Herman MD [address] [place] [phone] PCP - General Internal Medicine 12/10/18 documented as of this encounter
--- OUTSIDE RECORDS SUMMARY | 2024-08-19 13:19 | XMS_ITS | Encounter Summary ---
Author Organization [facility] [employer] [facility] and [facility] Address [address] [place] [address] Care Team Providers Care Production Broacher Name Role Phone Nery Herman MD Primary Care Provider [phone] Encounter Details Date Type Department Care Team ([facility] st Contact Info) Description 02/18/2019 Scanned Document [facility] [address] [facility] 800 [facility] [place] [address] José Luis Azar MD [address] [place] [phone] Social History Tobacco Use Types Packs/Day Years [...] on filedocumented in this encounter Care Teams Production Broacher Relationship Specialty Start Date End Date Nery Herman MD [address] [place] [phone] PCP - General Internal Medicine 12/10/18 documented as of this encounter
--- OUTSIDE RECORDS SUMMARY | 2024-08-19 13:19 | XMS_ITS | Continuity of Care Document ---
Author Organization [facility] Address [address] [place] [address]- Support Name Relationship Address Phone JOSÉ MIGUEL HERNANDEZ Personal Relationship Unknown Unav ailable BENGLE, MALLORY Mathis Personal Relationship Unknown Shiela vailable BENGLE, JOSÉ MIGUEL spouse Unknown Unavailable BENGLE, JOSÉ MIGUEL Personal Relationship Unknown Unav ailable BENGLE, MALLORY Personal Relationship Unknown Unava ilable BENGLE, JOSÉ MIGUEL Personal Relationship Unknown Unav ailable BENGLE, JOSÉ MIGUEL Personal Relationship Unknown Unav ailable BENGLE, JOSÉ MIGUEL Personal Relationship Unknown Unav ailable BENGLE, JOSÉ MIGUEL Personal Relationship Unknown Unav ailable BENGLE, JOSÉ MIGUEL Personal Relationship Unknown Unav ailable BENGLE, JOSÉ MIGUEL Personal Relationship Unknown Unav ailable BENGLE, JOSÉ MIGUEL Personal Relationship Unknown Unav ailable BENGLE, JOSÉ MIGUEL Personal Relationship Unknown Unav ailable BENGLE, JOSÉ MIGUEL A Personal Relationship Unknown Un available BENGLE, JOSÉ MIGUEL Personal Relationship Unknown Unav ailable BENGLE, JOSÉ MIGUEL Personal Relationship Unknown Unav ailable BENGLE, JOSÉ MIGUEL Personal Relationship Unknown Unav ailable Care Team Providers Care Die Operator Name Role Phone Rochelle Paniagua Primary Care Physician [phone] Encounter [facility] Date(s): 07/15/24 - 08/14/24 [facility] [address] [place], [place] [address] Encounter Type: Triage Allergies, Adverse Reactions, Alerts Substance Criticality Severity Reaction Reaction Severity Status cefpodoxime Burning of skin Ac tive cephalosporins burning of skin Active baclofen Active Cipro I.V. Hives Localized swelling Active [...] Vaccine (oldterm) 02/13/19 Jeanmarie ledbetter 1Result Comment: [id number] Problem List Condition Confirmation Course Effective Dates Status H ealth Status Informant Ankle pain, bilateral, chronic Confirmed Active Anticonvulsant causing adverse effect in [...] 10, 11, 12, 13, 14, 15, 16, 17, 18 Confirmed Active Foot pain, bilateral Confirmed Active Anxiety, generalized Confirmed Active History of fracture of coccyx Confirmed Active Hand joint pain, PIP joints Confirmed Active Hip pain, right Confirmed Active Hip pain, left Confirmed Active History of COVID-19: + 10/29/21 & received monoclonal Ab Rx 10/30/21 Confirmed Active Hyperlipidemia Confirmed Active Irritable bowel syndrome(IBS): diarrhea predominant Confirmed Active Lack of drug effect: oral compounded ketamine 19 Confirmed Active Lack of drug effect: memantine 20 Confirmed Active Fibroid Confirmed Active Mechanical low back pain Confirmed Active Microscopic hematuria Confirmed Active Myofascial pain syndrome, diffuse Confirmed Active Neck pain Confirmed Active Osteoporosis Confirmed Active Knee pain, bilateral, chronic Confirmed Active Knee pain, right Confirmed Active Shoulder pain, right Confirmed Active Pes anserinus bursitis 21 Confirmed Active Postmenopausal bleeding Confirmed Active Status post breast lumpectomy, for benign mass Confirmed 1989 Active Postural orthostatic tachycardia syndrome 22 Confirmed Active Sacroiliac joint dysfunction of right side Confirmed Active Rheumatoid arthritis with positive rheumatoid factor 22.3 on 05/28/18 Confirmed Active Shoulder pain, left Confirmed Active Shoulder pain, bilateral Confirmed Active Subserosal leiomyoma of uterus Confirmed [...] - Dr. Pederson 7Updated Oswestry Disability Index: 32% ( moderate disability ); updated [place] Back Pain DisabilityScale score: 35; both on 07/29/24 8Updated Oswestry Disability Index: 38% ( moderate disability ); updated [place] Back Pain Scale: 56;both on 05/09/23 9Updated Oswestry Disability Index: 44% ( severe disability ); updated [place] Back Pain Disability Scale score: 36; both on 02/28/22. 10Updated Oswestry Disability Index: 38% ( moderate disability ); updated [place] Back Pain Disability Scale score: 32; both on 10/21/21. 11Updated Oswestry Disability Index: 60% severe disability and [place] Back Pain Disability Scale: 59 on 09/22/2020. 12updated Oswestry Disability Index: 70% ( crippled ) on 01/02/19; updated [place] Back Pain Scale: 94 on 01/02/19 13Updated Oswestry Disability Index: 66% ( crippled ) on 11/09/17; updated [place] Back Pain Disability Scale score: 79 on 11/09/17 14Updated Oswestry Disability Index: 40% moderate disability and [place] Back Pain Disability Scale:54 on 08/22/16. 15Updated Oswestry Disability Index: 56% ( severe disability ) on 07/22/15; updated [place] Back Pain Disability Scale score: 68 on 07/22/15. 16Updated Oswestry Disability Index: 78% ( crippled ) on 01/14/15; updated [place] Back Pain Disability Scale score: 87 on 01/14/15. 17Updated [place]estry Disability Index: 42% severe disability and [place] Pain Disability Scale: 66 on 09/19/2013. 18Initial [place] [Back] Pain Disability Scale: 63 on 03/10/2009; [place] Disability Scale: 65 on 03/14/11. [place] Disability Scale: 56% ( severe disability ) on 03/14/11. 19Oral compounded. ketamine prescribed 09/05/19. Dose escalated to 90 mg/dose without pain reduction. At 100 mg/dose experienced somnolence. Trial abandoned 09/17/19. 20Trial of memantine for pain begun 01/14/20. At 10 mg twice daily no pain reduction. In mid 2019, during period of GI sxs, discontinued memantine. 21left knee 22Treated at [facility] March 2017. Social History Social History Type Response Smoking Status Never smoker entered on: 04/01/13 Sex Sex Representation Female (finding) Patient Care team information Care Team Personnel Name: Triny Tavera NP Position: [facility] PCO Associate Professional Member Role: Primary Care Nurse Address: [address] [facility] [place] [address]- [place] Telecom: Name: Rochelle Paniagua Position: [facility] Associate Professional Member Role: PCP Address: [address] [facility] [address] [facility] [place] [address]- [place] Telecom: Name: Triny Wiley RN Position: [facility] RN Member Role: Primary Care Nurse Name: Elisabeth Watson MD, Alverto Barnett Position: [facility] Anesthesiology MD Member Role: Lifetime Consulting Physician Address: [address] [place], [place] [phone] Telecom: Name: Margie Laguna Position: [facility] Outreach Member Role: Lifetime Consulting Physician Name: Martin TORRES, Kerry Camacho Position: [facility] PCO Associate Professional Member Role: Lifetime Consulting Provider Address: [address] [place] [address] [employer] [address] Telecom: Care Team Related Persons Name: JOSÉ MIGUEL HERNANDEZ Insurance Providers Guarantor name: MALLORY YULIYENNY Health Plan Information #: 1 Payer: NA Member Number: NA Policy Number: NA Group Number: NA Health Plan Information #: 2 Payer: MEDICARE PART B OUTPT Member Number: NA Policy Number: NA Group Number: NA
--- OUTSIDE RECORDS SUMMARY | 2024-08-19 13:19 | XMS_ITS | Clinical Summary ---
Author Organization [facility] Address [address] [place] [address] Care Team Providers Care Regional Medical Director Name Role Phone Unavailable Primary Care Provider Unavailabl e Social History Tobacco Use Types Packs/Day Years Used Date Smoking Tobacco: Never Assessed Comments Unknown Sex and Gender Information Value Date Recorded Sex Assigned at Not on file Legal Sex Female 11:37 AM EDT Gender Identity Not on file Sexual Orientation Not on file Plan of Treatment Health Maintenance Due Date Last Done Comments Hepatitis C Virus Screening 1966 HIV Screening 1979 DTaP/Tdap/Td Vaccines (1 - Tdap) 1985 Hepatitis B Vaccines (1 of 3 - 19+ 3-dose series) 1985 Pneumococcal Vaccines 50+ (1 of 1 - PCV) 2016 Zoster (Shingles) Vaccine (1 of 2) 2016 COVID-19 Vaccine (2023-2 5 season) 2023 Pneumococcal Vaccine: Pediat kanwal (0-5 Years) and At-Risk Patients (6 to 49 Years) Aged Out No longer eligible b ased on patient's age to complete this topic
--- OUTSIDE RECORDS SUMMARY | 2024-08-19 13:19 | XMS_ITS | Clinical Summary ---
Author Organization [address] Address [address] [place] [phone] Phone Care Team Providers Care Control Room Tender Name Role Phone Nery Herman MD Primary Care Provider [phone] Allergies Active Allergy Reactions Criticality Noted Date [...] screening 2006 Colon cancer screening, Colonoscopy 2011 Pneumococcal Vaccine (50+ years) (1 of 1 - PCV) 2016 Shingles vaccine (Shingrix) (1 of 2 - Shingrix (RZV) 2 Dose Standard Series) 2016 Diabetes screening 12/10/2021 12/10/2018 Covid-19 vaccine series (3 - season) 2023 09/16/2020, 08/19/2020 Influenza vaccine 12/23/2024 02/18/2022, , 02/13/2019, Additional history exists RSV Immunization (1 - 1-dose 75+ series) 2041 Meningococcal [...] - 5.6 % 12/10/2018 10:14 PM EDT [facility] Comment: Hemoglobin A1c values of [...] mg/dL 120 mg/dL 12/10/2018 10:14 PM EDT [facility] Comment: Estimated average glucose (eAG) is a calculated value designed to estimate ??the expected average blood glucose level throughout the day from a single ??measurement of ??glycated hemoglobin A1C (HbA1c) and follows the calculation proposed by the [place] Diabetes Association (Diabetes Care 31: 1-6, 2008). It may have less accuracy in children, women and patients with certain erythrocyte disorders. Blood Venipuncture / Unknown 12/10/2018 3:25 PM EDT 12/10/2018 3:51 PM EDT us José Luis Azar MD LAB BLOOD ORDERABLES Final R esult [facility] [address] [place] [address], [facility] [phone] from Last 3 Months or Most Recently Relevant to Health Maintenance [place] [address] [place] [address] HEALTHCARE MEDICARE [facility] Member Subscriber Plan / Payer (Ef fective 2018-Present) Name:Paula Sandoval Relation to Subscriber:Spouse Name:JOSÉ MIGUEL SANDOVAL Date of :1963 (Home) Address: [address] [place] [address] Payer ID:[id number] (NAIC) Type:Not on file Address: [place] [id number] MEDICARE [facility] MEDICARE Care Teams Control Room Tender Relationship Specialty Start Date End Date Nery Herman MD [address] [place] [phone] PCP - General Internal Medicine 12/10/18
--- OUTSIDE RECORDS SUMMARY | 2024-08-19 13:19 | XMS_ITS | Clinical Summary ---
Author Organization [facility] Address [address] [place] [address] Care Team Providers Care Tax Compliance Manager Name Role Phone Unavailable Primary Care Provider [...]
--- OUTSIDE RECORDS SUMMARY | 2024-08-19 13:19 | XMS_ITS | Clinical Summary ---
Author Organization [facility] Address [address] [place] [address] Care Team Providers Care Poultry Grader Name Role Phone Rochelle Lees Primary Care Provider Medications carvediloL (COREG) 25 mg tablet Take 1 tablet (25 mg total) by mouth 2 (two) times a day with meals. 180 tablet 1 07/11/2024 Active Encounters Date Type Department Care Team Description 07/15/2024 Telephone [facility] - [facility] [address] [facility] [address] [place] [phone] Feliz Avalos MD carvediloL (COREG) 25 mg (carvediloL (COREG) 25 mg ) 05/31/2024 Telephone [facility] - [facility] [address] [facility] [address] [place] [phone] Feliz Avalos MD Med Refill (Carvedilol ) from Last 3 Months Surgical History Surgery Date Site/Laterality Comments CHOLECYSTECTOMY 02/27/2015 PROCEDURE: [place] LAPAROSCOPY SURG CHOLECYSTECTOMY OTHER SURGICAL HISTORY 10/17/2014 PROCEDURE: HISTORY OTHER; COMMENT: Implantation of Electronic Stimulator into Urinary Bladder OTHER SURGICAL HISTORY 09/07/2011 PROCEDURE: HISTORICAL COLOSTOMY; COMMENT: End left colostomy and closure of dital segment (Thiago type procedure) BREAST LUMPECTOMY PROCEDURE: HISTORICAL BREAST LUMPECTOMY BREAST REDUCTION PROCEDURE: [place] BREAST REDUCTION Medical History Medical History Date [...] DX:Dry eyes Dyspnea DX:Dyspnea Dysthymia DX:Dysthymia Erythromelalgia ([facility] V24) DX :Erythromelalgia ([facility]) Fatigue DX:Fatigue Fibroid DX:Fibroid Greater trochanteric bursitis DX :Greater trochanteric bursitis Hand and foot pain DX:Hand and f oot pain Pain in joint of left hand DX:Pa in in joint of left hand; COMMENT: PIP joint fourth digit Headache, chronic daily DX:Heada amber, chronic daily History of gestational diabetes DX:History of gestational diabetes Fractured coccyx (CMS/HCC V2 4, CMS/HCC V28) DX:Fractured coccyx ([facility]); C OMMENT: H/O History of varicella DX:History of varicella; [...] hypotension Periorbital edema DX:Periorbital edema S/P colostomy (CMS/HCC V24, CMS/HCC V28) DX:S/P colostomy (HCC) Pruritus DX:Pruritus S/P reduction mammoplasty DX:S/P [...] - 2023-2 5 season) 2023 Influenza Vaccine (Season Ended) 2024 HIB Vaccines Aged Out No longer eligi [...] age to complete this topic Meningococcal B Vaccine Aged Out No l onger eligible based on patient's age to complete [...] age to complete this topic Care Teams Poultry Grader Relationship Specialty Start Date End Date Rochelle Lees PA [address] [place] [phone] PCP - General 05/17/24
--- OUTSIDE RECORDS SUMMARY | 2024-08-19 13:19 | XMS_ITS | Encounter Summary ---
Author Organization [facility] and [facility] Address [address] [place] [phone] Care Team Providers Care Manager Quality Name Role Phone Nery Herman MD Primary Care Provider [phone] Encounter Details Date Type Department Care Team (Late st Contact Info) Description 04/30/2021 Scanned Document [facility] [address] [facility] [address] [facility] Lower Level [place], [place] [address] Provider, historical . Social History Tobacco Use [...] on filedocumented in this encounter Care Teams Manager Quality Relationship Specialty Start Date End Date Nery Herman MD [address] [place] [phone] PCP - General Internal Medicine 12/10/18 documented as of this encounter
--- OUTSIDE RECORDS SUMMARY | 2024-08-19 13:19 | XMS_ITS | Encounter Summary ---
Author Organization [facility] Address [address] [place] [address] Care Team Providers Care Manager Green Name Role Phone Unavailable Primary Care Provider Unavailabl e Encounter Details Date Type Department Care Team (Late st Contact Info) Description 07/26/2023 Scanned Document [facility] SCAN Urology, Scan Social History Tobacco [...]
[2024-08-19 14:07] LABS: MANUAL DIFF FLAG NO
[2024-08-19 14:12] LABS: Basophils Absolute Auto 0.1 X10*3/uL (0.0-0.2); Basophils Percent Auto 0.8 % (0-2); Eosinophils Absolute Auto 0.2 X10*3/uL (0.0-0.4); Eosinophils Percent Auto 1.8 % (0-4); Hematocrit 41.4 % (37.0-47.0); Hemoglobin 13.9 g/dl (12.0-16.0); Imm Gran Abs Auto 0.04 X10*3/uL (0.00-0.03); Imm Gran Pct Auto 0.4 % (0.0-0.4); Lymphocytes Absolute Auto 4.1 X10*3/uL (1.2-4.9); Lymphocytes Percent Auto 40.6 % (20-40); Mean Corpuscular HGB Conc 33.6 g/dl (31.0-35.0); Mean Corpuscular Volume 92.4 fL (80.0-98.0); Mean Platelet Volume 9.5 fL (9.4-12.3); Monocytes Absolute Auto 0.7 X10*3/uL (0.1-1.2); Monocytes Percent Auto 6.8 % (2-11); Neutrophils Percent Auto 49.6 % (45-73); Platelet Count 359 X10*3/uL (160-400); Red Blood Count 4.48 X10*6/uL (4.20-5.50); Red Cell Distribution Width 12.7 % (11.0-16.0)
[2024-08-19 14:50] LABS: Alanine Aminotransferase 15 U/L (0-31); Albumin Level 4.2 g/dL (3.5-5.0); Aspartate Amino Transferase 23 U/L (5-31); Calcium 9.8 mg/dL (8.4-10.2); Erythrocyte Sedimentation Rate 12 MM/HR (0-20); Estimated Glomerular Filt Rate > 60; Vitamin D 25-OH Total 83.2 ng/mL (>30)
[2024-08-20 05:08] LABS: CRP High Sensitivity 4.2 mg/L
[2024-08-21 08:43] LABS: C Reactive Protein 0.48 mg/dL (< or = 0.50)
== END 2024-08-19 11:04 | disposition home or self-care (01) ==
LOC: HO.WFDLDS 11:03
PROVIDERS: Visit Provider Internal Medicine Rheumatology
DX: M81.0 Age-related osteoporosis without current pathological fracture (principal); M06.09 Rheumatoid arthritis without rheumatoid factor, multiple sites; Z79.899 Other long term (current) drug therapy
CPT/HCPCS: 36415; 82040; 82306; 82310; 82565; 84075; 84450; 84460; 85025; 85652; 86140; 86141

== ENCOUNTER 2024-09-11 12:36 | Outpatient (AMB) | payer OTHER, MEDICARE, SELFPAY ==
[2024-09-11 12:48] VITALS: BP 118/68; PULSE 65; O2SAT 98; BMI 27.2
--- NOTE | 2024-09-11 12:48 | A.OFFVIS_ITS ---
Vital Signs 09/11/24 12:48 Height 5 ft 1 in Weight 143 lb 11.862 oz BMI 27.2 BP 118/68 Blood Pressure Location Rt brachial Pulse 65 Pulse Source Pulse Oximeter Pulse Oximetry (%) 98 Oxygen Delivery Method Room Air Intake Visit Reasons: 3 Months Intake Note: Patient presents today for follow up on rheumatoid arthritis and arthralgia on hands and feet. Allergies baclofen Allergy (Mild, Verified 09/11/24 12:53) Hives cefpodoxime Allergy (Mild, Verified 09/11/24 12:53) Hives cipro IV Allergy (Mild, Uncoded 09/11/24 12:53) Hives HPI HPI 3 Months: Details: She did not find benefit with right shoulder cortisone injection. Shoulder pain has improved over time. She started Humira in June. She has reduce intense bone pain. Morning stiffness 30 minutes. In the last week she has been feeling unwell with increased headaches, diaphoresis, hot sweats, brain fog, and memory issues. She recently had labs from PCP, which revealed elevated TSH. She has called her PCP and left a message for call back for sick visit. She did not tolerate Celebrex. Physical Exam Vital Signs: Last Vital Signs Pulse 65 09/11/24 12:48 BP 118/68 09/11/24 12:48 Pulse Ox 98 09/11/24 12:48 Oxygen Delivery Method Room Air 09/11/24 12:48 BMI result Body Mass Index 27.2 Const Other: General: Comfortable CVS: RRR Respiratory: clear to auscultation bilaterally. Good respiratory effort Skin: No lesions seen MSK: No tenderness of any joints in upper extremities. Normal range of motion of upper extremities. Normal range of motion of lower extremities. No tenderness of ankles. Tenderness of bilateral MTPs. Assessment & Plan Assessment & Plan (1) Rheumatoid arthritis: Comment: Improvement on Humira History of seronegative RA. Methotrexate 09/2021-10/2023 held due to uterine biopsy then restarted and discontinued 2023 due to transaminitis. Enbrel 01/11 to present. Prednisone and methylprednisolone exacerbates POTS. Humira bio similar Amjevita 06/2024- Code(s): M06.9 - Rheumatoid arthritis, unspecified Category: Medical Qualifiers: Rheumatoid arthritis location: multiple sites Rheumatoid factor presence: without rheumatoid factor Qualified Code(s): M06.09 - Rheumatoid arthritis without rheumatoid factor, multiple sites Plan: Labs for drug monitoring on high-risk medication are up-to-date from 07/2024 Continue Humira bio similar Amjevita every other week Avoiding systemic glucocorticoid steroids due to exacerbation of POTS Return to clinic in 3 months (2) Other peripheral edp equipment operator (current) drug therapy: Code(s): Z79.899 - Other mcc (current) drug therapy Category: Medical Plan: See above Medications: Changed From adalimumab-atto (Amjevita(CF) Autoinjector) First dose in staff nuclear weapons officer with nurse teaching visit. Please call [phone] to schedule nurse teaching visit. 40 mg (0.4 mL) subcut Q2W 0.8 mL 2RF To adalimumab-atto (Amjevita(CF) Autoinjector) 40 mg (0.4 mL) subcut Q2W 0.8 mL 2RF Coding Level of Care Code Est Pt Level 4 (50516) Complex EM visit Add On G2211 Diagnoses Rheumatoid arthritis of multiple sites with negative rheumatoid factor M06.09 Rheumatoid arthritis location: multiple sites Rheumatoid factor presence: without rheumatoid factor Other peripheral edp equipment operator (current) drug therapy Z79.899
--- OUTSIDE RECORDS SUMMARY | 2024-09-11 13:21 | XMS_ITS | Encounter Summary ---
Author Organization [facility] Address [address] [place] [address] Care Team Providers Care Hot Press Operator Name Role Phone Unavailable Primary Care Provider Unavailabl e Encounter Details Date Type Department Care Team (Late st Contact Info) Description 07/26/2023 Scanned Document [facility] UROLOGY SCAN Urology, Scan Social History Tobacco [...]
--- OUTSIDE RECORDS SUMMARY | 2024-09-11 13:21 | XMS_ITS | Encounter Summary ---
Author Organization [facility] [employer] and [facility] Address [address] [place] [address] Care Team Providers Care Indian Trader Name Role Phone Nery Herman MD Primary Care Provider [phone] Encounter Details Date Type Department Care Team ([facility] st Contact Info) Description 11/16/2018 Abstract [facility] [address] [facility] [address] [facility] [place] [address] José Luis Azar MD [address] [place] [phone] Social History Tobacco Use Types Packs/Day Years [...] on filedocumented in this encounter Care Teams Indian Trader Relationship Specialty Start Date End Date Nery Herman MD [address] [place] [phone] PCP - General Internal Medicine 12/10/18 documented as of this encounter
--- OUTSIDE RECORDS SUMMARY | 2024-09-11 13:21 | XMS_ITS | Clinical Summary ---
Author Organization [address] Address [address] [place] [phone] Phone Care Team Providers Care Seismograph Operator Name Role Phone Nery Herman MD Primary Care Provider [phone] Allergies Active Allergy Reactions Criticality Noted Date [...] - 5.6 % 12/10/2018 10:14 PM EDT [facility] Comment: Hemoglobin A1c values of [...] mg/dL 120 mg/dL 12/10/2018 10:14 PM EDT [facility] Comment: Estimated average glucose (eAG) is a calculated value designed to estimate ??the expected average blood glucose level throughout the day from a single ??measurement of ??glycated hemoglobin A1C (HbA1c) and follows the calculation proposed by the [employer] Diabetes [employer] (Diabetes Care 31: 1-6, 2008). It may have less accuracy in children, women and patients with certain erythrocyte disorders. Blood Venipuncture / Unknown 12/10/2018 3:25 PM EDT 12/10/2018 3:51 PM EDT us José Luis Azar MD LAB BLOOD ORDERABLES Final R esult [facility] [address] [place] [phone], [facility] [phone] from Last 3 Months or Most Recently Relevant to Health Maintenance [place] [address] [place] [address] HEALTHCARE MEDICARE [facility] [facility] Member Subscriber Plan / Payer (Ef fective 2018-Present) Name:Paula Sandoval Relation to Subscriber:Spouse Name:JOSÉ MIGUEL SANDOVAL Date of :1963 (Home) Address: [address] [place] [address] Payer ID:[id number] (NAIC) Type:Not on file Address: [place] [id number] MEDICARE [facility] MEDICARE Care Teams Seismograph Operator Relationship Specialty Start Date End Date Nery Herman MD [address] [place] [phone] PCP - General Internal Medicine 12/10/18
--- OUTSIDE RECORDS SUMMARY | 2024-09-11 13:21 | XMS_ITS | Clinical Summary ---
Author Organization [facility] Address [address] [place] [address] Care Team Providers Care Oil And Gas Lease Pumper Name Role Phone Unavailable Primary Care Provider [...]
--- OUTSIDE RECORDS SUMMARY | 2024-09-11 13:21 | XMS_ITS | Clinical Summary ---
Author Organization [facility] Address [address] [place] [address] Care Team Providers Care Staff Electrical Engineer Name Role Phone Unavailable Primary Care Provider [...] (1 of 3 - 19+ 3-dose series) 04/25 Pneumococcal Vaccines 50+ (1 of 1 - PCV) 2016 Zoster (Shingles) Vaccine (1 of 2) 2016 COVID-19 Vaccine ( - 2023- season) 2023
--- OUTSIDE RECORDS SUMMARY | 2024-09-11 13:21 | XMS_ITS | Clinical Summary ---
Author Organization [facility] [facility] it Address [address] [place] [address] Care Team Providers Care Stagecraft Professor Name Role Phone Rochelle Lees Primary Care Provider Medications carvediloL (COREG) 25 mg tablet Take 1 tablet (25 mg total) by mouth 2 (two) times a day with meals. 180 tablet 1 07/11/2024 Active Encounters Date Type Department Care Team Description 07/15/2024 Telephone [facility] [address] [facility] [address] [place] [address] Feliz Avalos MD carvediloL (COREG) 25 mg (carvediloL (COREG) 25 mg ) from Last 3 Months Surgical History Surgery Date Site/Laterality Comments CHOLECYSTECTOMY 02/27/2015 PROCEDURE: HI LAPAROSCOPY SURG CHOLECYSTECTOMY OTHER SURGICAL HISTORY 10/17/2014 PROCEDURE: HISTORY OTHER; COMMENT: Implantation of Electronic Stimulator into Urinary Bladder OTHER SURGICAL HISTORY 09/07/2011 PROCEDURE: HISTORICAL COLOSTOMY; COMMENT: End left colostomy and closure of dital segment (Thiago type procedure) BREAST LUMPECTOMY PROCEDURE: HISTORICAL BREAST LUMPECTOMY BREAST REDUCTION PROCEDURE: HI BREAST REDUCTION Medical History Medical History Date [...] DX:Dry eyes Dyspnea DX:Dyspnea Dysthymia DX:Dysthymia Erythromelalgia ([facility] V24) DX :Erythromelalgia ([facility]) Fatigue DX:Fatigue Fibroid DX:Fibroid Greater trochanteric bursitis DX :Greater trochanteric bursitis Hand and foot pain DX:Hand and f oot pain Pain in joint of left hand DX:Pa in in joint of left hand; COMMENT: PIP joint fourth digit Headache, chronic daily DX:Heada amber, chronic daily History of gestational diabetes DX:History of gestational diabetes Fractured coccyx ([facility] V2 4, [facility] V28) DX:Fractured coccyx ([facility]); C OMMENT: H/O History of [...] age to complete this topic Care Teams Stagecraft Professor Relationship Specialty Start Date End Date Rochelle Lees PA [address] [place] [phone] PCP - General 05/17/24
--- OUTSIDE RECORDS SUMMARY | 2024-09-11 13:21 | XMS_ITS | Encounter Summary ---
Author Organization [facility] [employer] [facility] and [facility] Address [address] [place] [address] Care Team Providers Care Tombstone Erector Name Role Phone Nery Herman MD Primary Care Provider [phone] Encounter Details Date Type Department Care Team ([facility] st Contact Info) Description 02/18/2019 Scanned Document [facility] [address] [facility] 800 [facility] [address] José Luis Azar MD [address] [place] [phone] Social History Tobacco Use Types Packs/Day Years [...] on filedocumented in this encounter Care Teams Tombstone Erector Relationship Specialty Start Date End Date Nery Herman MD [address] [place] [phone] PCP - General Internal Medicine 12/10/18 documented as of this encounter
--- OUTSIDE RECORDS SUMMARY | 2024-09-11 13:21 | XMS_ITS | Encounter Summary ---
Author Organization [facility] Address [address] [place] [phone] Care Team Providers Care Brick Carrier Name Role Phone Nery Herman MD Primary Care Provider [phone] Encounter Details Date Type Department Care Team (Late st Contact Info) Description 04/30/2021 Scanned Document [facility] [address] [facility] [address] [facility] [place], [place] [phone] Provider, historical . Social History Tobacco Use [...] on filedocumented in this encounter Care Teams Brick Carrier Relationship Specialty Start Date End Date Nery Herman MD [address] [place] [phone] PCP - General Internal Medicine 12/10/18 documented as of this encounter
== END 2024-09-11 13:44 | disposition home or self-care (01) ==
LOC: HO.RHES 12:37
PROVIDERS: Visit Provider Internal Medicine Rheumatology
DX: M06.09 Rheumatoid arthritis without rheumatoid factor, multiple sites (principal); Z79.899 Other long term (current) drug therapy
CPT/HCPCS: 99214; G2211

== ENCOUNTER → 2024-09-11 12:36 | Outpatient (BNVA) | payer OTHER, MEDICARE, SELFPAY | PROVIDERS: Visit Provider Internal Medicine Rheumatology ==

== ENCOUNTER 2024-11-06 14:04 | Outpatient (AMB) | payer OTHER, MEDICARE, SELFPAY ==
--- NOTE | 2024-11-06 14:14 | MHC.OFFVIS ---
Vital Signs 11/06/24 14:15 Height 5 ft 1 in Weight 146 lb 2 oz BMI 27.6 BP 120/62 Blood Pressure Location Lt brachial Position Sitting Pulse 60 Pulse Source Pulse Oximeter Pulse Oximetry (%) 98 Oxygen Delivery Method Room Air Intake Visit Reasons: follow up Intake Note: Patient presents today for follow up on rheumatoid arthritis and arthralgia on hands and feet. She is follow up on shoulders, neck, and back today. Allergies baclofen Allergy (Mild, Verified 11/06/24 14:18) Hives cefpodoxime Allergy (Mild, Verified 11/06/24 14:18) Hives cipro IV Allergy (Mild, Uncoded 11/06/24 14:18) Hives HPI HPI follow up: Details: 5 days ago she started experiencing right shoulder pain. Left shoulder pain started a week ago. She has limited range of motion and function. Celebrex is ineffective. She is hearing clicking when she moves her shoulders. She tries to do exercises previously learned from PT. No other joints are swollen. Physical Exam Vital Signs: Last Vital Signs Pulse 60 11/06/24 14:15 BP 120/62 11/06/24 14:15 Pulse Ox 98 11/06/24 14:15 Oxygen Delivery Method Room Air 11/06/24 14:15 BMI result Body Mass Index 27.6 Const Other: General: Comfortable CVS: RRR Respiratory: clear to auscultation bilaterally. Good respiratory effort Skin: No lesions seen MSK: Tender to palpate bilateral shoulders anteriorly, subacromial region and posteriorly. Active shoulder abduction 90 degrees. I am able to passively abduct her shoulder to 160 degrees with pain. She does not have full internal or external rotation of shoulders due to pain. Left shoulder is warm. No bulge present on shoulders indicating synovitis. No other joints are tender. Normal range of motion of lower extremities. Assessment & Plan Assessment & Plan (1) Bilateral shoulder pain: Comment: With limited range of motion. She has had cyclic exacerbations of shoulder pain with reduced range of motion and has failed conservative management with physical therapy, NSAIDs (Celebrex, ibuprofen 600 mg Q 6hours), Tylenol 1000 mg q.6 hours, tramadol and intra-articular cortisone injections. She has osteoarthritis of bilateral shoulders. She had left shoulder x-ray 11/01/2024, that revealed: demonstrate no fracture or dislocation. There is moderate osteoarthritic changes in the glenohumeral joint with inferior spurring. AC joint intact. No rotator cuff calcifications. When compared to x-ray from 2023 it has osteoarthritis has progress as she had mild osteoarthritis on prior x-ray. Right shoulder x-ray from 2022 reveals degenerative joint disease. I am concerned that inflammatory arthritis may be playing a role. Differential diagnosis also includes rotator cuff tendon tear. Code(s): M25.511 - Pain in right shoulder; M25.512 - Pain in left shoulder Category: Medical Plan: MRI bilateral shoulders with and without contrast to evaluate for inflammatory arthritis versus tendon tear Return to clinic in 1 month She has scheduled an appointment with Orthopedic surgery for further evaluation (2) Rheumatoid arthritis: Comment: Improvement on Amjevita. History of seronegative RA. Methotrexate 09/2021-10/2023 held due to uterine biopsy then restarted and discontinued 2023 due to transaminitis. Enbrel 01/11/2023 to present. Prednisone and methylprednisolone exacerbates POTS. Humira bio similar Amjevita 06/2024- Code(s): M06.9 - Rheumatoid arthritis, unspecified Category: Medical Qualifiers: Rheumatoid arthritis location: multiple sites Rheumatoid factor presence: without rheumatoid factor Qualified Code(s): M06.09 - Rheumatoid arthritis without rheumatoid factor, multiple sites Plan: Labs for drug monitoring on high-risk medication due today Continue Humira bio similar Amjevita Return to clinic in 1 month Orders: Orders MR shoulder RT wo/w con Today M06.09 - Rheumatoid arthritis without rheumatoid factor, multiple sites, M25.511 - Pain in right shoulder, M25.512 - Pain in left shoulder MR shoulder LT wo/w con Today M06.09 - Rheumatoid arthritis without rheumatoid factor, multiple sites, M25.511 - Pain in right shoulder, M25.512 - Pain in left shoulder Alanine Aminotransferase Today M06.09 - Rheumatoid arthritis without rheumatoid factor, multiple sites, Z79.60 - superintendent marine oil terminal (current) use of unspecified immunomodulators and immunosuppressants Aspartate Amino Transferase Today M06.09 - Rheumatoid arthritis without rheumatoid factor, multiple sites, Z79.60 - superintendent marine oil terminal (current) use of unspecified immunomodulators and immunosuppressants Creatinine Today M06.09 - Rheumatoid arthritis without rheumatoid factor, multiple sites, Z79.60 - skilled nursing (current) use of unspecified immunomodulators and immunosuppressants Erythrocyte Sedimentation Rate Today M06.09 - Rheumatoid arthritis without rheumatoid factor, multiple sites Complete Blood Count Auto Diff Today M06.09 - Rheumatoid arthritis without rheumatoid factor, multiple sites, Z79.60 - superintendent marine oil terminal (current) use of unspecified immunomodulators and immunosuppressants C Reactive Protein Today M06.09 - Rheumatoid arthritis without rheumatoid factor, multiple sites Coding Level of Care Code Est Pt Level 4 (05020) Complex EM visit Add On G2211 Diagnoses Bilateral shoulder pain M25.511; M25.512 Rheumatoid arthritis of multiple sites with negative rheumatoid factor M06.09 Rheumatoid arthritis location: multiple sites Rheumatoid factor presence: without rheumatoid factor
[2024-11-06 14:15] VITALS: BP 120/62; PULSE 60; O2SAT 98; BMI 27.6
--- OUTSIDE RECORDS SUMMARY | 2024-11-06 14:50 | XMS_ITS | Clinical Summary ---
Author Organization [facility] Address [address] [place] [address] Care Team Providers Care Clinique Counter Manager Name Role Phone Unavailable Primary Care [...] 86 10/01/2015 11:00 AM EDT Temperature 37.1 C (98.7 F) 10/01/2015 11:00 AM EDT Respiratory Rate - - Oxygen Saturation 100% [...] (1 of 2) 2016 Influenza Vaccine (#1) 2024 Pneumococcal Vaccine Aged Out No long er eligible based on patient's age to complete this topic RSV Ped < 20 months Aged Out No longe r eligible based on patient's age to complete this topic
--- OUTSIDE RECORDS SUMMARY | 2024-11-06 14:50 | XMS_ITS | Encounter Summary ---
Author Organization [facility] Address [address] [place] [id number] Care Team Providers Care Tank Wagon Driver Name Role Phone Nery Herman MD Primary Care Provider [phone] Encounter Details Date Type Department Care Team (Late st Contact Info) Description 04/30/2021 Scanned Document [facility] [address] [facility] [address] [facility] [address] [place], [place] [address] Provider, historical . Social History Tobacco Use [...] on filedocumented in this encounter Care Teams Tank Wagon Driver Relationship Specialty Start Date End Date Nery Herman MD [address] [place] [id number] PCP - General Internal Medicine 12/10/18 documented as of this encounter
--- OUTSIDE RECORDS SUMMARY | 2024-11-06 14:50 | XMS_ITS | Clinical Summary ---
Author Organization [facility] Address [address] [place] [address] Care Team Providers Care Meat Scrubber Name Role Phone Unavailable Primary Care Provider [...]
--- OUTSIDE RECORDS SUMMARY | 2024-11-06 14:51 | XMS_ITS ---
Author Name [facility] Organization Unknown Care Team Organization Name Specialty Phone Email Start Date End [facility] 07/26/2023
--- OUTSIDE RECORDS SUMMARY | 2024-11-06 14:51 | XMS_ITS | Clinical Summary ---
Author Organization [facility] Address [address] [place] [address] Care Team Providers Care Computer Network Engineer Name Role Phone Rochelle Lees Primary Care Provider Medications carvediloL (COREG) 25 mg tablet Take 1 tablet (25 mg total) by mouth 2 (two) times a day with meals. 180 tablet 1 07/11/2024 Active Surgical History Surgery Date Site/Laterality Comments CHOLECYSTECTOMY 02/27/2015 PROCEDURE: [facility] LAPAROSCOPY SURG CHOLECYSTECTOMY OTHER SURGICAL HISTORY 10/17/2014 PROCEDURE: HISTORY OTHER; COMMENT: Implantation of Electronic Stimulator into Urinary Bladder OTHER SURGICAL HISTORY 09/07/2011 PROCEDURE: HISTORICAL COLOSTOMY; COMMENT: End left colostomy and closure of dital segment (Thiago type procedure) BREAST LUMPECTOMY PROCEDURE: HISTORICAL BREAST LUMPECTOMY BREAST REDUCTION PROCEDURE: [facility] BREAST REDUCTION Medical History Medical History Date [...] DX:Dry eyes Dyspnea DX:Dyspnea Dysthymia DX:Dysthymia Erythromelalgia (CMS/HCC V24) DX :Erythromelalgia ([facility]) Fatigue DX:Fatigue Fibroid DX:Fibroid Greater trochanteric bursitis DX :Greater trochanteric bursitis Hand and foot pain DX:Hand and f oot pain Pain in joint of left hand DX:Pa in in joint of left hand; COMMENT: PIP joint fourth digit Headache, chronic daily DX:Heada amber, chronic daily History of gestational diabetes DX:History of gestational diabetes Fractured coccyx ([facility] V2 4, [facility] V28) DX:Fractured coccyx ([facility]); C OMMENT: H/O History of varicella DX:History [...] 2023-2 5 season) 2023 Influenza Vaccine (#1) 2024 HIB Vaccines Aged Out No longer [...] age to complete this topic Care Teams Computer Network Engineer Relationship Specialty Start Date End Date Rochelle Lees PA [address] [place] [id number] PCP - General 05/17/24
== END 2024-11-06 15:29 | disposition home or self-care (01) ==
PROVIDERS: Visit Provider Internal Medicine Rheumatology
DX: M25.511 Pain in right shoulder (principal); M25.512 Pain in left shoulder; M06.09 Rheumatoid arthritis without rheumatoid factor, multiple sites
CPT/HCPCS: 99214

== ENCOUNTER 2024-11-06 14:04 | Outpatient (REF) | payer OTHER, MEDICARE, SELFPAY ==
--- OUTSIDE RECORDS SUMMARY | 2024-11-02 23:59 | XMS_ITS | Continuity of Care Document ---
Author Organization [facility] Address [address] [facility], [address] [place] [phone] Support Name Relationship Address Phone JOSÉ MIGUEL HERNANDEZ Personal Relationship Unknown Unav ailable BENGLE, MALLORY A Personal Relationship Unknown Shiela vailable BENGLE, JOSÉ [...] Unknown Unav ailable Care Team Providers Care Family Advocate Name Role Phone Rochelle Paniagua Primary Care Physician Encounter [facility] Date(s): 10/03/24 - 11/02/24 [facility] [email or web address] [address] [facility], [address] [place] [phone] Encounter Type: Triage Allergies, Adverse Reactions, Alerts Substance Criticality Severity Reaction Reaction Severity Status ciprofloxacin Swelling Active cefpodoxime Burning of skin Ac tive Percocet 1 Active baclofen Active cephalosporins burning of skin Active Cipro I.V. Hives Localized swelling Active 1itching Immunizations Given and Recorded Vaccine Date Status [...] R ecorded Influenza Virus Vaccine (oldterm) 02/13/19 Recorde d 1Result Comment: [id number] Medications Albuterol (Eqv-Ventolin HFA) 90 mcg/inh inhalation aerosol 18 Gm, 0 Refill(s), INHALE TWO PUFFS BY MOUTH EVERY 4 TO 6 HOURS NEEDED FOR SHORTNESS OF BREATH OR WHEEZING, 0 Refills, 08/07/23 9:16:00 AM EDT, Partial fill upon patient request if the prescription is for a schedule II opioid drug. Start Date: 08/07/23 Status: Ordered Repeat number: 1 Amjevita Autoinjector 40 mg/0.4 mL subcutaneous solution 0 Refills, Maintenance, 07/29/24 3:21:00 PM EDT, Partial fill upon patient request if the prescription is for a schedule II opioid drug. Start Date: 07/29/24 Status: Ordered Repeat number: 1 Cannabis (Schedule I Substance) By Mouth, Daily, 0 Refills, Maintenance, 10/15/19 3:11:00 PM EDT Start Date: 10/15/19 Status: Ordered Repeat number: 1 carvedilol 25 mg oral tablet 25 mg, 1, tablet, By Mouth, 2 times a day Start Date: 06/07/21 Status: Ordered Repeat number: 1 cetirizine 10 mg oral capsule 1 capsule = 10 mg, By Mouth, Daily, # 40 capsule, 0 Refills, Maintenance, 10/21/21 4:22:00 PM EDT, Capsule, Partial fill upon patient request if the prescription is for a schedule II opioid drug. Start Date: 10/21/21 Status: Ordered Quantity: 40.0 Unit: capsule Repeat number: 1 Controlled Substance Agreement Controlled Substance Agreement, See Instructions, # 1 each, Refills 0, Tot. Refills 0, Maintenance,Udated on: 01/29/2024 Pharmacy : [facility] [employer] [facility] DX: M79.18, diffuse myofascial pain; M25.511; M25.512 Danny shoulder pain, 09/22/20 4:08:00 PM EDT, Supply Start Date: 09/22/20 Status: Ordered Quantity: 1.0 Unit: each Repeat number: 1 estradiol 0.1 mg/g vaginal cream See Instructions, INSERT 1 GRAM VAGINALLY 3 NIGHTS PER WEEK AT BEDTIME, # 42.5 Gm, 3 Refills, Maintenance, 05/07/24 10:32:00 AM EST, [facility], 155.25, cm, 04/11/24 12:37:00 EST, Height, 63.4, kg, 09/29/23 8:36:00 EDT, Dry Weight Start Date: 05/07/24 Status: Ordered Quantity: 42.5 Unit: g Repeat number: 1 famotidine 20 mg oral tablet 20 mg, 1, tablet, By Mouth, Daily, Refills 0, Maintenance, 07/14/20 3:45:00 PM EDT, Partial fill upon patient request if the prescription is for a schedule II opioid drug. Start Date: 07/14/20 Status: Ordered Repeat number: 1 High Potency Vitamin D3 250 mcg (10,000 intl units) oral capsule 1 capsule = 250 mcg, By Mouth, Every week, 0 Refills, Maintenance, 06/15/23 2:43:00 PM EST, Partial fill upon patient request if the prescription is for a schedule II opioid drug. Start Date: 06/15/23 Status: Ordered Repeat number: 1 ibuprofen 600 mg oral tablet See Instructions, PRN, 1 tablet taken By Mouth Every 6 hours not to exceed 3200 mg/day, # 60 tablet, Refills 0, Tot. Refills 0, Maintenance, as needed for pain, 09/26/24 10:44:00 AM EDT, Instructions Replace Required Details, Route to Pharmacy Electronically, [id number], Partial fill upon patient request if the prescription is for a schedule II opioid drug., 154, cm, 09/18/24 14:43:00 EDT, Height, 63.4, kg, 09/26/24 9:29:00 EDT, Dry Weight Start Date: 09/26/24 Status: Ordered Quantity: 60.0 Unit: tablet Repeat number: 1 lidocaine 5% topical film 1 patch, Topically, Daily, remove patches after 12 hours, # 30 patch, 3 Refills, Maintenance, 05/23/24 7:14:00 PM EST, [facility], 1 patch Topically Daily,Instr:remove patches after 12 hours, 155.25, cm, 04/11/24 12:37:00 EST, Height, 63.4, kg, 09/29/23 8:36:00 EDT, Dry Weight Start Date: 05/23/24 Status: Ordered Quantity: 30.0 Unit: patch Repeat number: 4 Narcan 4 mg/0.1 mL nasal spray See Instructions, SPRAY ONCE INTO ONE NOSTRIL MAY REPEAT Q 2 TO 3 MINUTES IN ALTERNATE NOSTRILS IF NO RESPONSE, # 2 each, 0 Refills, Maintenance, 05/25/21 10:47:00 AM EST, [place], [facility], For personal and community harm reduction, 152.4, cm, 02/19/21 8:50:00 EDT, Height, 72, kg, 01/25/21 6:52:00 EDT, Dry Weight Start Date: 05/25/21 Status: Ordered Quantity: 2.0 Unit: each Repeat number: 1 ondansetron 4 mg oral tablet, disintegrating 1 tablet = 4 mg, By Mouth, Every 8 hours, PRN Nausea & Vomiting, # 30 tablet, 1 Refills, Maintenance, 08/27/24 12:44:00 PM EDT, Tablet, [facility], Partial fill upon patient request if the prescription is for a schedule II opioid drug., 155.25, cm, 08/16/24 11:33:00 EDT, Height,63.4, kg, 09/29/23 8:36:00 EDT, Dry Weight Start Date: 08/27/24 Status: Ordered Quantity: 30.0 Unit: tablet Repeat number: 2 rizatriptan 10 mg oral tablet, disintegrating 1 tablet = 10 mg, By Mouth, Daily, PRN as needed for migraine headache, may repeat dose every 2 hours up to a maximum of 30 mg in 24 hours, # 18 tablet, 1 Refills, Acute 08/01/25 4:27:00 PM EDT, 07/31/24 4:26:00 PM EDT, DIS Tablet, [facility], Partial fill upon patient request if theprescription is for a schedule II opioid drug., 155.25, cm, 07/29/24 15:15:00 EDT, Height, 63.4, kg, 09/29/23 8:36:00 EDT, Dry Weight Start Date: 07/31/24 Stop Date: 08/01/25 Status: Ordered Quantity: 18.0 Unit: tablet Repeat number: 2 traMADol 50 mg oral tablet 1 tablet = 50 mg, By Mouth, Every 4 hours, PRN as needed for pain, # 16 tablet, 0 Refills, Acute 11/04/24 4:28:00 PM EDT, 11/01/24 4:27:00 PM EDT, Tablet, [facility], Partial fill upon patient request if the prescription is for a schedule II opioid drug., 154, cm, 11/01/24 15:57:00 EDT, Height, 62.5, kg, 11/01/24 15:57:00 EDT, Dry Weight Start Date: 11/01/24 Stop Date: 11/04/24 Status: Ordered Quantity: 16.0 Unit: tablet Repeat number: 1 Indications: Unspecified injury of left shoulder and upper arm, initial encounter; traMADol 50 mg oral tablet 1-2 tablets, By Mouth, 3 times a day, PRN moderately severe pain., # 84 tablet, 2 Refills, Maintenance, 09/17/24 8:25:00 PM EDT, [facility], 154, cm, 09/15/24 21:33:00 EDT, Height, 62, kg, 09/15/24 21:33:00 EDT, Dry Weight Start Date: 09/17/24 Status: Ordered Quantity: 84.0 Unit: tablet Repeat number: 3 Indications: Erythromelalgia; Myalgia, other site; triamcinolone 0.025% topical cream See Instructions, 1 application Topically 2 times a day as needed, # 15 Gm, 1 Refills, Maintenance,10/03/24 1:36:00 PM EDT, Cream, [facility], Partial fill upon patient request if the prescription is for a schedule II opioid drug., 1 application Topically 2 times a day as needed, 154, cm, 09/18/24 14:43:00 EDT, Height, 63.4, kg, 09/26/24 9:29:00 EDT, Dry Weight Start Date: 10/03/24 Status: Ordered Quantity: 15.0 Unit: g Repeat number: 2 Indications: Other specified noninflammatory disorders of vulva and perineum; Tylenol 325 mg oral capsule See Instructions, PRN as needed for pain, 2 capsule (650 mg) taken By Mouth Every 4 hours not to exceed 4000 mg/day, # 60 capsule, 0 Refills, Maintenance, 09/26/24 10:44:00 AM EDT, Capsule, [facility], Partial fill upon patient request if the prescription is for a schedule II opioiddrug., 154, cm, 09/18/24 14:43:00 EDT, Height, 63.4, kg, 09/26/24 9:29:00 EDT, Dry Weight Start Date: 09/26/24 Status: Ordered Quantity: 60.0 Unit: capsule Repeat number: 1 Problem List Condition Confirmation Course Effective Dates [...] Azar. She began tx at 25 mg bid& then incr'd the dose to 2 caps bid. After a couple days at the 50 mg bid dose ->felt likeI was in another world & stopped the pregabalin. She had had similar AEs w prev. trial.. 4B/L per pt 02/2019 5left 6Dx 2018 - Dr. Pederson 7Updated Oswestry Disability Index: 32% ( moderate disability ); updated [place] Pain DisabilityScale score: 35; both on 07/29/24 8Updated Oswestry Disability Index: 38% ( moderate disability ); updated [place] Pain Scale: 56;both on 05/09/23 9Updated Oswestry Disability Index: 44% ( severe disability ); updated [place] Pain Disability Scale score: 36; both on 02/28/22. 10Updated Oswestry Disability Index: 38% ( moderate disability ); updated [place] Pain Disability Scale score: 32; both on 10/21/21. 11Updated Oswestry Disability Index: 60% severe disability and [place] Pain Disability Scale: 59 on 09/22/2020. 12updated Oswestry Disability Index: 70% ( crippled ) on 01/02/19; updated [place] Pain Scale: 94 on 01/02/19 13Updated Oswestry Disability Index: 66% ( crippled ) on 11/09/17; updated [place] Pain Disability Scale score: 79 on 11/09/17 14Updated Oswestry Disability Index: 40% moderate disability and [place] Pain Disability Scale:54 on 08/22/16. 15Updated Oswestry Disability Index: 56% ( severe disability ) on 07/22/15; updated [place] Pain Disability Scale score: 68 on 07/22/15. 16Updated Oswestry Disability Index: 78% ( crippled ) on 01/14/15; updated [place] Pain Disability Scale score: 87 on 01/14/15. 17Updated Oswestry Disability Index: 42% severe disability and [place] Pain Disability Scale: 66 on 09/19/2013. 18Initial [place]Back] Pain Disability Scale: 63 on 03/10/2009; [place] Disability Scale: 65 on 03/14/11. [place] Disability [...] sxs, discontinued memantine. 21left knee 22Treated at [facility] March 2017. Social History Social History Type Response Smoking Status Never smoker entered on: 04/01/13 Sex Sex Representation Female (finding) Patient Care team information Care Team Personnel Name: Triny Tavera NP Position: [facility] PCO Associate Professional Member Role: Primary Care Nurse Address: [address] [place] [address] Telecom: Name: Rochelle Paniagua Position: [facility] Associate Professional Member Role: PCP Address: [address] [facility] [place] [address]- [place] Telecom: Name: Triny Wiley RN Position: [facility] SN RN Member Role: Primary Care Nurse Name: Elisabeth Watson MD, Alverto Barnett Position: [facility] Anesthesiology MD Member Role: Lifetime Consulting Physician Address: [address] [place] [address]- [place] Telecom: Name: Margie Laguna Position: [facility] Outreach Member Role: Lifetime Consulting Physician Name: Martin SAMPLE CLERK, Kerry Camacho Position: [facility] PCO Associate Professional Member Role: Lifetime Consulting Provider Address: [address] [facility] [place] [address]- [place] Telecom: Care Team Related Persons Name: JOSÉ MIGUEL HERNANDEZ Insurance Providers Guarantor name: MALLORY MARY Health Plan Information #: 1 Payer: [employer] Payer Identifier: CYNTHIA Member Number: [id number] Group Number: [id number] Subscriber Identifier: [id number] Relationship to Subscriber: spouse Coverage Type: Managed Care (Private) Coverage Verification Date: NA Telecom: NA Address: Health Plan Information #: 2 Payer: MEDICARE B Payer Identifier: CYNTHIA Member Number: [id number] Group Number: Subscriber Identifier: [id number] Relationship to Subscriber: self Coverage Type: NA Coverage Verification Date: NA Telecom: Address:
[2024-11-06 18:03] LABS: MANUAL DIFF FLAG NO
[2024-11-06 18:21] LABS: Hematocrit 38.8 % (37.0-47.0); Hemoglobin 13.0 g/dl (12.0-16.0); Imm Gran Abs Auto 0.05 X10*3/uL (0.00-0.03); Imm Gran Pct Auto 0.5 % (0.0-0.4); Lymphocytes Absolute Auto 3.7 X10*3/uL (1.2-4.9); Mean Corpuscular HGB Conc 33.5 g/dl (31.0-35.0); Mean Corpuscular Hemoglobin 30.4 pg (27.0-33.0); Mean Corpuscular Volume 90.7 fL (80.0-98.0); NRBC Abs Auto 0.000 X10*3/uL (0.0-0.012); NRBC Pct Auto 0.0 /100WBC (0.0-0.2); Platelet Count 386 X10*3/uL (160-400); Red Blood Count 4.28 X10*6/uL (4.20-5.50); White Blood Count 10.5 X10*3/uL (4.8-10.8)
[2024-11-06 18:37] LABS: Alanine Aminotransferase 23 U/L (0-31); Aspartate Amino Transferase 27 U/L (5-31); Estimated Glomerular Filt Rate > 60
== END 2024-11-06 14:05 | disposition home or self-care (01) ==
LOC: HO.HKASLDS 14:04
PROVIDERS: Visit Provider Internal Medicine Rheumatology
DX: M06.09 Rheumatoid arthritis without rheumatoid factor, multiple sites (principal); M19.011 Primary osteoarthritis, right shoulder; M19.012 Primary osteoarthritis, left shoulder; M25.511 Pain in right shoulder; M25.512 Pain in left shoulder; Z51.81 Encounter for therapeutic drug level monitoring; Z79.52 Long term (current) use of systemic steroids; Z79.1 Long term (current) use of non-steroidal anti-inflammatories (NSAID); Z79.60 Long term (current) use of unspecified immunomodulators and immunosuppressants; Z79.899 Other long term (current) drug therapy
CPT/HCPCS: 36415; 82565; 84450; 84460; 85025; 85652; 86140

== ENCOUNTER 2024-12-05 13:32 | Outpatient (AMB) | payer OTHER, MEDICARE, SELFPAY ==
--- NOTE | 2024-12-05 13:37 | MHC.OFFVIS ---
Vital Signs 12/05/24 13:38 Height 5 ft 1 in BP 140/80 H Blood Pressure Location Rt brachial Position Sitting Pulse 68 Pulse Source Pulse Oximeter Pulse Oximetry (%) 98 Oxygen Delivery Method Room Air Intake Visit Reasons: 3 months Intake Note: Patient presents today for follow up on rheumatoid arthritis and arthralgia on hands and feet Accompanied by: Self / Same As Patient Allergies baclofen Allergy (Mild, Verified 12/05/24 13:41) Hives cefpodoxime Allergy (Mild, Verified 12/05/24 13:41) Hives celecoxib Adverse Reaction (Verified 12/05/24 13:54) dry mouth cipro IV Allergy (Mild, Uncoded 11/06/24 14:18) Hives HPI HPI 3 months: Details: She is planning to have left shoulder surgery January 02. She will be meeting with orthopedic surgeon prior to surgery after having CT. No new joint swelling. No recent infection. Physical Exam Vital Signs: Last Vital Signs Pulse 68 12/05/24 13:38 BP 140/80 H 12/05/24 13:38 Pulse Ox 98 12/05/24 13:38 Oxygen Delivery Method Room Air 12/05/24 13:38 Const Other: General: Comfortable CVS: RRR Respiratory: clear to auscultation bilaterally. Good respiratory effort Skin: No lesions seen MSK: Tender to palpate bilateral shoulders. She is wearing a left shoulder brace. Active right shoulder abduction 110 degrees. Limited full internal external rotation of right shoulder.. No bulge present on shoulders. No other joints are tender. No synovitis. Normal range of motion of lower extremities. No MTP tenderness Assessment & Plan Assessment & Plan (1) Rheumatoid arthritis: Comment: Controlled on Amjevita. MRI of bilateral shoulders with and without contrast did not reveal inflammatory arthritis contributing to her pain. She has moderate osteoarthritis of left shoulder and mild to moderate osteoarthritis of right shoulder with bilateral rotator cuff tendinopathy. She is planning to have left shoulder replacement surgery. We discussed the importance of communicating with surgeon about her pain disorders. She will ask her mobile paint specialist who write a letter to her surgeon. History of seronegative RA. Methotrexate 09/2021-10/2023 held due to uterine biopsy then restarted and discontinued 2023 due to transaminitis. Enbrel 01/11/2023 to present. Prednisone and methylprednisolone exacerbates POTS. Humira bio similar Amjevita 06/2024- Code(s): M06.9 - Rheumatoid arthritis, unspecified Category: Medical Qualifiers: Rheumatoid arthritis location: multiple sites Rheumatoid factor presence: without rheumatoid factor Qualified Code(s): M06.09 - Rheumatoid arthritis without rheumatoid factor, multiple sites Plan: Labs for drug monitoring on high-risk medication are up-to-date from 10/2024 Continue Humira bio similar Amjevita every other week. she will continue biologic until December 21. After postop follow-up if the wound is healing and there is no signs of infection, she may continue biologic. Avoiding systemic glucocorticoid steroids due to exacerbation of POTS She will continue to use ibuprofen 600 mg b.i.d. PRN pain Return to clinic in 3 months (2) Other senior care (current) drug therapy: Code(s): Z79.899 - Other superintendent container terminal (current) drug therapy Category: Medical Plan: See above Medications: Refilled adalimumab-atto (Amjevita(CF) Autoinjector) 40 mg (0.4 mL) subcut Q2W 0.8 mL 5RF Discontinued celecoxib Take with food Discontinued Reason: Doctor's Order 200 mg PO BID 60 caps 2RF Coding Level of Care Code Est Pt Level 4 (46236) Complex EM visit Add On G2211 Diagnoses Rheumatoid arthritis of multiple sites with negative rheumatoid factor M06.09 Rheumatoid arthritis location: multiple sites Rheumatoid factor presence: without rheumatoid factor Other senior care (current) drug therapy Z79.899
[2024-12-05 13:38] VITALS: BP 140/80; PULSE 68; O2SAT 98
--- OUTSIDE RECORDS SUMMARY | 2024-12-05 14:23 | XMS_ITS | Encounter Summary ---
Author Organization [facility] Address [address] [place] [phone] Care Team Providers Care Motors And Generators Inspector Name Role Phone Nery Herman MD Primary Care Provider [phone] Encounter Details Date Type Department Care Team (Late st Contact Info) Description 04/30/2021 Scanned Document [facility] at [address] [facility] [address] [facility] [place], [place] [id number] Provider, historical . Social History Tobacco Use [...] on filedocumented in this encounter Care Teams Motors And Generators Inspector Relationship Specialty Start Date End Date Nery Herman MD [address] [place] [phone] PCP - General Internal Medicine 12/10/18 documented as of this encounter
--- OUTSIDE RECORDS SUMMARY | 2024-12-05 14:23 | XMS_ITS | Clinical Summary ---
Author Organization [facility] Address [address] [place] [address] Care Team Providers Care Property And Casualty Insurance Agent Name Role Phone Unavailable Primary Care Provider [...]
--- OUTSIDE RECORDS SUMMARY | 2024-12-05 14:23 | XMS_ITS | Clinical Summary ---
Author Organization [facility] Address [address] [facility] [address] [place] [phone] Phone Care Team Providers Care Health And Wellness Director Name Role Phone Anca Terry MD Primary Care Provider [phone] Allergies Active Allergy Reactions Criticality Noted Date Comments Ciprofloxacin Hives,Swelling 11/15/2019 Oxycodone-Acetaminophen Itching 08/31/2011 Medications buprenorphine HCl (BELBUCA) [address] 600 mcg inside cheek 2 (two) times a day. Active morphine sulfate (MORPHINE ORAL) Take 15 mg by mouth 2 (two) times a day. 4 tabs BID Active diazePAM (VALIUM) 5 MG tablet Take 5 mg by mouth 2 (two) times a day. 2 tabs in the AM and 3 tabs at bedtime Active rizatriptan benzoate (RIZATRIPTAN ORAL) Take by mouth as needed. PRN for migraines Active nitroglycerin (NITROSTAT) 0.[address] 0.4 mg under the tongue as needed for chest pain. Active Active Problems Problem Noted Date Diagnosed Date Postmenopausal bleeding 11/17/2019 Assessment & Plan (11/17/2019 10:00 PM EDT): Reviewed differential diagnosis for PMB including atrophy, structural abnormalities (fibroid, polyp), and hyperplasia/malignancy. Recommend eval with endometrial biopsy, if benign and bleeding persists will proceed with ultrasound. Procedure completed without complication. Family History Medical History Relation Comments Bladder Cancer Father Hyperlipidemia Father Hypertension Father Prostate cancer Father Heart attack Mother Hyperlipidemia Mother Hypertension Mother Relation Status Comments Father Renal Cell Cance r Mother Social History Tobacco Use Types Packs/Day Years Used Date Smoking Tobacco: Never Smokeless Tobacco: Never Alcohol Use Standard Drinks/Week Comments Never 0 (1 standard drink = 0.6 oz pur e alcohol) Education Answer Date Recorded Are you interested in more education? Not on lizz e 08/27/2022 Are you concerned about learning? Not on file 08/27/2022 No 08/27/2022 No 08/27/2022 Digital Access Answer Date Recorded No 09/18/2022 No 09/18/2022 Reliable internet access at home? Not on file 09/18/2022 Device with a working camera? Not on file Comments No Sex and Gender Information Value Date Recorded Sex Assigned at Female 10/11/2019 10:44 AM EDT Legal Sex Female 5:39 PM EST Gender Identity Female 10/11/2019 10:44 AM EDT Sexual Orientation Straight 10/11/2019 10 :44 AM EDT Last Filed Vital Signs Vital Sign Reading Time Taken Comments Blood Pressure 132/82 11/15/2019 11:15 AM EDT Pulse - - Temperature - - Respiratory Rate - - Oxygen Saturation - - Inhaled Oxygen Concentration - - Weight 80.6 kg (177 lb 9.6 oz) 11/15/2019 11:15 AM EDT Height 156.2 cm (5' 1.5 ) 11/15/2019 11:15 AM ED T Body Mass Index 33.01 11/15/2019 11:15 AM EDT Plan of Treatment Health Maintenance Due Date Last Done Comments Adult Td,Tdap Booster 1965 LIPID PANEL 1965 DEPRESSION SCREENING 1978 HEPATITIS C SCREENING 1984 HIV ONE-TIME SCREENING (18-65 YEARS) 1984 COLOGUARD 2011 COLONOSCOPY 2011 COLORECTAL CANCER SCREENING 2011 FIT TEST 2011 FOBT 2011 SIGMOIDOSCOPY 2011 VIRTUAL COLONOSCOPY 2011 PNEUMOCOCCAL VACCINES (50+ years) (1 of 1 - PCV) 2016 ZOSTER VACCINES (1 of 2) 2016 MAMMOGRAM 02/19/2022 02/20/2020 PAP SMEAR 11/14/2022 11/15/2019, 10/23, 10/29/2015, Additional history exists COVID-19 VACCINE ( season) 2023 09/16/2020, 08/19/2020 SMOKING STATUS SCREENING (Once After 26 Yrs) Completed 11/15/2019 HEPATITIS A VACCINES Aged Out No long er eligible based on patient's age to complete this topic HIB VACCINES Aged Out No longer eligi ble based on patient's age to complete this topic MENINGOCOCCAL VACCINES (ACWY) Aged Out No longer eligible based on patient's age to complete this topic MENINGOCOCCAL VACCINES (B) Aged Out N o longer eligible based on patient's age to complete this topic Medical Devices Not on file Procedures Procedure Name Priority Date/Time Associated Diagnosis Comments HM MAMMOGRAPHY Routine 02/20/2020 PAP TEST Routine 11/15/2019 12:00 AM EDT from Last 3 Months or Most Recently Relevant to Health Maintenance Results * MAMMOGRAPHY FOR RESULT ENTRY ONLY (02/20/2020) Raquel Juan MD HEALTH MAINTENANCE F inal Result * Pap Smear (11/15/2019 12:00 AM EDT) 11/15/2019 11/20/2019 2:1 4 PM EDT Narrative SEE NARRATIVE - 11/25/2019 1:21 PM EDT [address] [address] Car Mechanic Helper: Lucrecia Long MD PHOTOVOLTAIC INSTALLER Cytology Report FINAL DIAGNOSIS A. PAP SMEAR (SUREPATH) CE: SPECIMEN ADEQUACY: Satisfactory for evaluation; transformation zone present. INTERPRETATION: NEGATIVE FOR INTRAEPITHELIAL LESION OR MALIGNANCY. Electronically Signed Out By: Heladio Lindo MD By his/her signature above, the pathologist listed as making the Final Diagnosis certifies that he/she has personally reviewed this case and confirmed or corrected the diagnosis. The Pap test is a screening test primarily for squamous cancers and precursors and has associated false-negative and false-positive results. New technologies such as liquid-based preparations may decrease but will not eliminate all false-negative results. Regular sampling and follow-up of unexplained clinical signs and symptoms are recommended to minimize false negative results. CLINICAL HISTORY Date of Last Menstrual Period: Not Provided Menstrual History: Post Menopausal Bleeding, PM Other Clinical Conditions: Screening Pap SPECIMEN SOURCE A: PAP SMEAR (SUREPATH) CE Patient Name: PAULA SANDOVAL : 1965 (Age: 54) Sex: F Institution: [facility] Location: [facility] Date of Collection: 11/15/2019 Date of Reported: 11/25/2019 13:22 Results to: Sonia Zee MD us Sonia Zee MD CYTOLOGY ORDERABLES Final Res ult SEE NARRATIVE from Last 3 Months or Most Recently Relevant to Health Maintenance Insurance [facility] PART [facility] [place] [address] [address] [employer] PPO MEDICARE PART A & B [place] [employer] PPO MEDICARE PART A & B [facility] PPO MEDICARE PART A & B Member Subscriber Plan / Payer (Ef fective 2003-Present) Name:Paula Sandoval Member ID:[id number] Relation to Subscriber:Self Name:Paula Sandoval Subscriber ID:[id number] Payer ID:[id number] Group ID:Not on file Type:Medicare Address: [facility] [employer] [facility] [address] [place] [address] [facility] [employer] PPO MEDICARE PART A & B [facility] [employer] PPO MEDICARE PART A & B [facility] PPO MEDICARE PART A & B [place] [employer] PPO MEDICARE PART A & B [facility] [employer] PPO Care Teams Health And Wellness Director Relationship Specialty Start Date End Date Anca Terry MD [address] [place] [address] [email or web address] PCP - General Internal Medicine 10/11/19 Additional Source Comments The information contained in this document represents components of the legal health record. It is not the complete legal health record.[facility]
--- OUTSIDE RECORDS SUMMARY | 2024-12-05 14:23 | XMS_ITS | Clinical Summary ---
Author Organization [facility] Address [address] [place] [address] Care Team Providers Care Waste Specialist Name Role Phone Unavailable Primary Care Provider [...]
--- OUTSIDE RECORDS SUMMARY | 2024-12-05 14:23 | XMS_ITS | Clinical Summary ---
Author Organization [facility] ity Address [address] [place] [address] Care Team Providers Care Associate Director Of Sales Name Role Phone Rochelle Lees Primary Care Provider Medications carvediloL (COREG) 25 mg tablet Take 1 tablet (25 mg total) by mouth 2 (two) times a day with meals. 180 tablet 1 07/11/2024 Active Surgical History Surgery Date Site/Laterality Comments CHOLECYSTECTOMY 02/27/2015 PROCEDURE: [place] LAPAROSCOPY SURG CHOLECYSTECTOMY OTHER SURGICAL HISTORY 10/17/2014 PROCEDURE: HISTORY OTHER; COMMENT: Implantation of Electronic Stimulator into Urinary Bladder OTHER SURGICAL HISTORY 09/07/2011 PROCEDURE: HISTORICAL COLOSTOMY; COMMENT: End left colostomy and closure of dital segment (Thiago type procedure) BREAST LUMPECTOMY PROCEDURE: HISTORICAL BREAST LUMPECTOMY BREAST REDUCTION PROCEDURE: IL BREAST REDUCTION Medical History Medical History Date [...] Dysthymia DX:Dysthymia Erythromelalgia (CMS/HCC V24) DX :Erythromelalgia ([facility]) Fatigue DX:Fatigue Fibroid DX:Fibroid Greater trochanteric bursitis DX :Greater trochanteric bursitis Hand and foot pain DX:Hand and f oot pain Pain in joint of left hand DX:Pa in in joint of left hand; COMMENT: PIP joint fourth digit Headache, chronic daily DX:Heada amber, chronic daily History of gestational diabetes DX:History of gestational diabetes Fractured coccyx ([facility] V2 4, [facility] [place] DX:Fractured coccyx ([facility]); C OMMENT: H/O History of varicella DX:History [...] Panel) 04/02/2022 Colorectal Cancer Screening: Colonoscopy 04/02/2022 HIV Screening 04/02/2022 Hepatitis C Screening 04/02/2022 Hypertension/CHF/CAD Annual BMP Blood Test 04/02/2022 Social Influencers of Health Screening 04/02/2022 COVID-19 Vaccine ( - 2023-2 5 season) 2023 Depression Screening 04/24/2024 Influenza Vaccine (#1) 2024 HIB Vaccines Aged [...] age to complete this topic Care Teams Associate Director Of Sales Relationship Specialty Start Date End Date Rochelle Lees PA [address] [place] [phone] PCP - General 05/17/24
== END 2024-12-05 14:10 | disposition home or self-care (01) ==
LOC: HO.RHES 13:33
PROVIDERS: Visit Provider Internal Medicine Rheumatology
DX: M06.09 Rheumatoid arthritis without rheumatoid factor, multiple sites (principal); Z79.899 Other long term (current) drug therapy
CPT/HCPCS: 99214; G2211

== ENCOUNTER 2025-03-12 13:17 | Outpatient (AMB) | payer OTHER, MEDICARE, SELFPAY ==
--- NOTE | 2025-03-12 13:18 | MHC.OFFVIS ---
Vital Signs 03/12/25 13:19 Height 5 ft 1 in BP 150/80 H Blood Pressure Location Lt brachial Position Sitting Pulse 80 Pulse Source Pulse Oximeter Pulse Oximetry (%) 98 Oxygen Delivery Method Room Air Intake Visit Reasons: 3 Months Intake Note: Patient presents today for follow up on rheumatoid arthritis and arthralgia on hands and feet Accompanied by: Self / Same As Patient Allergies morphine Allergy (Severe, Verified 03/12/25 13:24) itchy baclofen Allergy (Mild, Verified 03/12/25 13:18) Hives cefpodoxime Allergy (Mild, Verified 03/12/25 13:18) Hives celecoxib Adverse Reaction (Verified 03/12/25 13:18) dry mouth cipro IV Allergy (Mild, Uncoded 11/06/24 14:18) Hives HPI HPI 3 Months: Details: 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 She is doing well with physical therapy. Can fell on left foot. It was bruised and swollen. She started experiencing increased joint pains after the incident. Morning stiffness is now hours. Cold is affecting her pain level is well. She takes Ibuprofen 600mg BID Physical Exam Vital Signs: Last Vital Signs Pulse 80 03/12/25 13:19 BP 150/80 H 03/12/25 13:19 Pulse Ox 98 03/12/25 13:19 Oxygen Delivery Method Room Air 03/12/25 13:19 Const Other: General: Comfortable CVS: RRR Respiratory: clear to auscultation bilaterally. Good respiratory effort Skin: No lesions seen MSK: Tender to palpate bilateral shoulders. Right shoulder abduction 120 degrees. Left shoulder abduction 160 degrees with good internal external rotation. No other joints are tender. No synovitis. Normal range of motion of lower extremities. No MTP tenderness Assessment & Plan Assessment & Plan (1) Rheumatoid arthritis: Comment: Mild flare in setting of immune activation after injury to left foot. She is tolerating her symptoms on ibuprofen. History of seronegative RA. Methotrexate 09/2021-10/2023 held due to uterine biopsy then restarted and discontinued 2023 due to transaminitis. Enbrel 01/11/2023 to present. Prednisone and methylprednisolone exacerbates POTS. Humira bio similar Amjevita 06/2024- Code(s): M06.9 - Rheumatoid arthritis, unspecified Category: Medical Qualifiers: Rheumatoid arthritis location: multiple sites Rheumatoid factor presence: without rheumatoid factor Qualified Code(s): M06.09 - Rheumatoid arthritis without rheumatoid factor, multiple sites Plan: Labs for drug monitoring on high-risk medication are due today Continue Humira bio similar Amjevita every other week Avoiding systemic glucocorticoid steroids due to exacerbation of POTS She will continue to use ibuprofen 600 mg b.i.d. PRN pain Return to clinic in 3 months (2) Other skilled nursing (current) drug therapy: Code(s): Z79.899 - Other skilled nursing (current) drug therapy Category: Medical Plan: See above Orders: Orders Alanine Aminotransferase Today Z79.899 - Other skilled nursing (current) drug therapy Aspartate Amino Transferase Today Z79.899 - Other long term care administrator (current) drug therapy Erythrocyte Sedimentation Rate Today Z79.899 - Other long term care administrator (current) drug therapy XR DEXA appendicular skeleton Today M81.0 - Age-related osteoporosis without current pathological fracture Complete Blood Count Auto Diff Today Z79.899 - Other long term care administrator (current) drug therapy Creatinine Today Z79.899 - Other long term care administrator (current) drug therapy C Reactive Protein Today Z79.899 - Other long term care administrator (current) drug therapy XR DEXA axial skeleton Today M81.0 - Age-related osteoporosis without current pathological fracture Medications: Refilled adalimumab-atto (Amjevita(CF) Autoinjector) 40 mg (0.4 mL) subcut Q2W 0.8 mL 5RF Coding Level of Care Code Est Pt Level 4 (10374) Complex EM visit Add On G2211 Diagnoses Rheumatoid arthritis of multiple sites with negative rheumatoid factor M06.09 Rheumatoid arthritis location: multiple sites Rheumatoid factor presence: without rheumatoid factor Other long term care administrator (current) drug therapy Z79.899
[2025-03-12 13:19] VITALS: BP 150/80; PULSE 80; O2SAT 98
--- OUTSIDE RECORDS SUMMARY | 2025-03-13 01:10 | XMS_ITS | Encounter Summary ---
Author Organization [facility] Address [address] [place] [address] Care Team Providers Care Computer Trainer Name Role Phone Unavailable Primary Care Provider Unavailabl e Encounter Details Date Type Department Care Team (Late st Contact Info) Description 07/26/2023 Scanned Document [facility] SCAN Urology, Scan Social History Tobacco [...]
--- OUTSIDE RECORDS SUMMARY | 2025-03-13 01:10 | XMS_ITS | Encounter Summary ---
Author Organization [facility] [employer] [facility] and [facility] Address [address] [place] [address] Care Team Providers Care Parliamentary Counsel Name Role Phone Nery Herman MD Primary Care Provider [phone] Encounter Details Date Type Department Care Team ([facility] st Contact Info) Description 11/16/2018 Abstract [facility] at [address] [facility] [address] [facility] [place] [address] José Luis Azar MD [address] [place] [phone] Social History Tobacco Use Types Packs/Day Years [...] on filedocumented in this encounter Care Teams Parliamentary Counsel Relationship Specialty Start Date End Date Nery Herman MD [address] [place] [phone] PCP - General Internal Medicine 12/10/18 documented as of this encounter
--- OUTSIDE RECORDS SUMMARY | 2025-03-13 01:10 | XMS_ITS | Encounter Summary ---
Author Organization [facility] [employer] [facility] and [facility] Address [address] [place] [address] Care Team Providers Care Bulbs Farmworker Name Role Phone Nery Herman MD Primary Care Provider [phone] Encounter Details Date Type Department Care Team ([facility] st Contact Info) Description 02/18/2019 Scanned Document [facility] [address] [facility] [address] [facility] [place] [address] José Luis Azar MD [address] [place] [phone] Social History Tobacco Use Types Packs/Day Years [...] on filedocumented in this encounter Care Teams Bulbs Farmworker Relationship Specialty Start Date End Date Nery Herman MD [address] [place] [phone] PCP - General Internal Medicine 12/10/18 documented as of this encounter
--- OUTSIDE RECORDS SUMMARY | 2025-03-13 01:10 | XMS_ITS | Clinical Summary ---
Author Organization [facility] Address [address] [facility] [address] [place] [phone] Phone Care Team Providers Care Size Maker Name Role Phone Anca Terry MD Primary Care Provider [phone] Allergies Active Allergy Reactions Criticality Noted Date [...] 11/14/2022 11/15/2019, 10/23, 10/29/2015, Additional history exists INFLUENZA VACCINE (#1) 2024 02/16/2018, 2009 COVID-19 VACCINE (3 - season) 2024 09/16/2020, 08/19/2020 RSV VACCINE (1 - 1-dose 75+ series) 2041 SMOKING STATUS SCREENING (Once After 26 Yrs) Completed 11/15/2019 HEPATITIS A VACCINES Aged Out No long er eligible based on patient's age to complete this topic HIB VACCINES Aged Out No longer eligi ble based on patient's age to complete this topic IPV VACCINES Aged Out No longer eligi ble [...] Recently Relevant to Health Maintenance Results * HM MAMMOGRAPHY FOR RESULT ENTRY ONLY (02/20/2020) Raquel Juan MD HEALTH MAINTENANCE F inal Result * Pap Smear (11/15/2019 12:00 AM EDT) 11/15/2019 11/20/2019 2:1 4 PM EDT Narrative SEE NARRATIVE - 11/25/2019 1:21 PM EDT [address] [address] Freight Sales Broker: Lucrecia Long MD CONTROL ROOM SUPERVISOR Cytology Report FINAL DIAGNOSIS A. PAP SMEAR [...] : 1965 (Age: 54) Sex: F Institution: [facility] Location: [facility] Date of Collection: 11/15/2019 Date of Reported: 11/25/2019 13:22 Results to: Sonia Zee MD Sonia Zee MD CYTOLOGY ORDERABLES Final Res ult SEE NARRATIVE from Last 3 Months or Most Recently Relevant to Health Maintenance Insurance MEDICARE PART A & B [facility] PPO MEDICARE [facility] A & [facility] MED[facility] PART A & B [facility] [employer] PPO MEDICARE [facility] A & B [facility] [employer] PPO MEDICARE PART A & B [employer] P[employer] MEDICARE PART A & B [place] [employer] PPO MEDICARE PART A & B [facility] PPO MEDICARE PART A & B [facility] [employer] PPO MEDICARE PART A & B [facility] [employer] PPO Care Teams Size Maker Relationship Specialty Start Date End Date Anca Terry MD [address] [place] [address] [email or web address] PCP - General Internal Medicine 10/11/19 Additional Source Comments The information contained in this document represents components of the legal health record. It is not the complete legal health record.[facility]
--- OUTSIDE RECORDS SUMMARY | 2025-03-13 01:10 | XMS_ITS | Encounter Summary ---
Author Organization [facility] and [facility] Address [address] [place] [address] Care Team Providers Care Diesel Scoop Operator Name Role Phone Nery Herman MD Primary Care Provider [phone] Encounter Details Date Type Department Care Team (Late st Contact Info) Description 04/30/2021 Scanned Document [facility] [address] [facility] [address] [facility] [place], [place] [phone] Provider, historical . Social History Tobacco Use [...] on filedocumented in this encounter Care Teams Diesel Scoop Operator Relationship Specialty Start Date End Date Nery Herman MD [address] [place] [phone] PCP - General Internal Medicine 12/10/18 documented as of this encounter
--- OUTSIDE RECORDS SUMMARY | 2025-03-13 01:10 | XMS_ITS | Clinical Summary ---
Author Organization [facility] Address [address] [place] [address] Care Team Providers Care Dipper And Baker Name Role Phone Unavailable Primary Care Provider [...] Vaccine (1 of 2) 2016 COVID-19 Vaccine (1 - season) 2024 RSV Vaccine 50 years and old er and Patients (1 - 1-dose 75+ series) 2041
--- OUTSIDE RECORDS SUMMARY | 2025-03-13 01:10 | XMS_ITS | Clinical Summary ---
Author Organization [address] Address [address] [place] [phone] Phone Care Team Providers Care Civil Engineer'S Aide Name Role Phone Nery Herman MD Primary Care Provider [phone] Allergies Active Allergy Reactions Criticality Noted Date [...] 73 03/01/2021 3:15 PM EST Temperature 36.7 C (98 F) 03/01/2021 3:15 PM EST Respiratory Rate - [...] 2016 Diabetes screening 12/10/2021 12/10/2018 Influenza vaccine 11/22/2024 02/18/2022, , 02/13/2019, Additional history exists Covid-19 vaccine series (3 - season) 2024 09/16/2020, 08/19/2020 RSV Immunization (1 - 1-dose 75+ series) 2041 Meningococcal B Vaccine Aged Out No l onger eligible based on patient's age to complete this topic Meningococcal Vaccine Aged Out No jose luis [...] - 5.6 % 12/10/2018 10:14 PM EDT [facility] Comment: Hemoglobin A1c values of 5.7-6.4 % identify individuals with an increased risk for future diabetes and to whom the term pre-diabetes may be applied. Hemoglobin A1c values greater than 6.4% on more [...] mg/dL 120 mg/dL 12/10/2018 10:14 PM EDT [facility] Comment: Estimated average glucose (eAG) is a calculated value designed to estimate the expected average blood glucose level throughout the day from a single measurement of glycated hemoglobin A1C (HbA1c) and follows the calculation proposed by the [place] [employer] (Diabetes Care 31: 1-6, 2008). It may have less accuracy in children, women and patients with certain erythrocyte disorders. Blood Venipuncture / Unknown 12/10/2018 3:25 PM EDT 12/10/2018 3:51 PM EDT us José Luis Azar MD LAB BLOOD ORDERABLES Final R esult [facility] [address], [facility] [phone] from Last 3 Months or Most Recently Relevant to Health Maintenance [place] [address] [address] [place] [address] HEALTHCARE Member Subscriber Plan / Payer (Ef fective 2018-Present) Name:Paula Sandoval Relation to Subscriber:Spouse Name:LORIJOSÉ MIGUEL Mathis Date of :1963 (Home) Address: [address] [place] [address] Payer ID:[id number] (NAIC) Type:Not on file Address: [place] [phone] MEDICARE [facility] MEDICARE Care Teams Civil Engineer'S Aide Relationship Specialty Start Date End Date Nery Herman MD [address] [place] [phone] PCP - General Internal Medicine 12/10/18
--- OUTSIDE RECORDS SUMMARY | 2025-03-13 01:10 | XMS_ITS | Clinical Summary ---
Author Organization [facility] Address [address] [place] [address] Care Team Providers Care Engineering Operations Leader Name Role Phone Unavailable Primary Care Provider [...]
== END 2025-03-12 13:52 | disposition home or self-care (01) ==
LOC: HO.RHES 13:17
PROVIDERS: Visit Provider Internal Medicine Rheumatology
DX: M06.09 Rheumatoid arthritis without rheumatoid factor, multiple sites (principal); Z79.899 Other long term (current) drug therapy
CPT/HCPCS: 99214; G2211

== ENCOUNTER 2025-03-12 13:17 | Outpatient (REF) | payer OTHER, MEDICARE, SELFPAY ==
[2025-03-12 18:27] LABS: MANUAL DIFF FLAG NO
[2025-03-12 18:58] LABS: Hematocrit 42.9 % (37.0-47.0); Hemoglobin 14.4 g/dl (12.0-16.0); Imm Gran Abs Auto 0.04 X10*3/uL (0.00-0.03); Imm Gran Pct Auto 0.4 % (0.0-0.4); Lymphocytes Absolute Auto 3.3 X10*3/uL (1.2-4.9); Mean Corpuscular HGB Conc 33.6 g/dl (31.0-35.0); Mean Corpuscular Hemoglobin 30.9 pg (27.0-33.0); Mean Corpuscular Volume 92.1 fL (80.0-98.0); NRBC Abs Auto 0.000 X10*3/uL (0.0-0.012); NRBC Pct Auto 0.0 /100WBC (0.0-0.2); Platelet Count 385 X10*3/uL (160-400); Red Blood Count 4.66 X10*6/uL (4.20-5.50); White Blood Count 10.3 X10*3/uL (4.8-10.8)
[2025-03-12 19:45] LABS: Alanine Aminotransferase 20 U/L (0-31); Aspartate Amino Transferase 26 U/L (5-31); Estimated Glomerular Filt Rate > 60
== END 2025-03-12 13:18 | disposition home or self-care (01) ==
LOC: HO.HKASLDS 13:17
PROVIDERS: Visit Provider Internal Medicine Rheumatology
DX: M06.09 Rheumatoid arthritis without rheumatoid factor, multiple sites (principal); M81.0 Age-related osteoporosis without current pathological fracture; Z79.899 Other long term (current) drug therapy
CPT/HCPCS: 36415; 82565; 84450; 84460; 85025; 85652; 86140